=== PATIENT | male | born 1965 | race Caucasian/White ===

== ENCOUNTER 2017-10-06 11:46 | Inpatient (IN) | payer MEDICAID, OTHER, SELFPAY ==
[2017-10-06 11:52] VITALS: BP 134/87; PULSE 106; RESP 16; TEMP 37.6; O2SAT 95
--- NOTE | 2017-10-06 12:10 | DI.REPORT_ITS ---
SYMPTOMS/DIAGNOSIS: SWELLING AND PAIN, INFECTION IN ARM LEFT ELBOW: Only two views were obtained due to patient's pain. No definite fracture or dislocation is appreciated. There may be a small joint effusion. There is soft tissue swelling about the elbow. No radiopaque foreign bodies are seen in the soft tissues. IMPRESSION: Limited examination of the left elbow. No definite acute fracture or dislocation. Findings suggestive of an effusion. Occult fracture cannot be excluded. Followup as clinically appropriate. This may include a complete left elbow series.
[2017-10-06 12:29] LABS: Abs Immature Grans 0.03 k/cumm (0.0-0.09); Absolute Basophil Count 0.01 k/cumm (0.0-0.2); Absolute Eosinophil Count 0.04 k/cumm (0.0-0.7); Absolute Lymphocyte Count 1.23 k/cumm (1.2-3.4); Absolute Monocyte Count 0.96 k/cumm (0.11-0.7); Absolute Neutrophil Count 8.68 k/cumm (1.2-6.7); Basophils % 0.1; Eosinophils % 0.4; HCT 40.3 % (40.0-50.0); HGB 14.4 g/dL (13.5-17.5); Immature Grans % 0.3; Lymphocytes % 11.2; Mean Corp. HGB Concentration 35.7 g/dL (32.0-36.0); Mean Corpuscular Hemoglobin 31.9 pg (27.0-33.0); Mean Corpuscular Volume 89.2 fL (80-95); Mean Platelet Volume 10.6 fL (8.0-11.0); Monocytes % 8.8; Neutrophils % 79.2; Platelet Count 184 x1000/uL (130-400); RBC 4.52 m/cumm (4.50-6.00); RBC Distribution Width 12.1 % (11.8-14.1); White Blood Cell Count 10.96 k/cumm (4.4-10.8)
[2017-10-06 12:41] LABS: C-Reactive Protein 21.11 mg/dL (0.0-0.3)
[2017-10-06 12:45] LABS: ALT 38 U/L (12-78); AST 36 U/L (15-37); Albumin 3.7 g/dL (3.4-5.0); Alkaline Phosphatase 78 U/L (46-116); Anion Gap 9.5 mmol/L (3-11); BUN 20 mg/dL (7-18); Bilirubin, Total 1.6 mg/dL (0.2-1.0); CO2 25.5 mmol/L (21.0-32.0); Calcium 8.9 mg/dL (8.5-10.1); Chloride 99 mmol/L (98-107); Glucose 102 mg/dL (70-100); Potassium 3.4 mmol/L (3.5-5.1); Sodium 134 mmol/L (136-145); Total Protein 7.9 g/dL (6.4-8.2)
--- NOTE | 2017-10-06 12:45 | ED.GENADUL_ITS ---
Disposition Clinical Impression: Cellulitis Disposition: [facility] INPATIENT Condition: Poor Medical Decision Making - Lab Data Laboratory Tests 10/06/17 10/06/17 12:19 12:19 WBC 10.96 H RBC 4.52 Hgb 14.4 Hct 40.3 MCV 89.2 MCH 31.9 MCHC 35.7 RDW 12.1 Plt Count 184 MPV 10.6 Immature Gran % 0.3 Neutrophils % 79.2 Lymphocytes % 11.2 Monocytes % 8.8 Eosinophils % 0.4 Basophils % 0.1 Absolute Neutrophils 8.68 H Absolute Lymphocytes 1.23 Absolute Monocytes 0.96 H Absolute Eosinophils 0.04 Absolute Basophils 0.01 Lactate 1.0 Results reviewed for labs ordered during visit: Yes - Radiology Data Radiology results: report reviewed, image reviewed - Medical Decision Making Patient presenting to the emergency department via [facility] facility medical staff there is concern for treatment failure for left elbow cellulitis. Patient has significant cellulitis, is diaphoretic, and tachycardic on presentation. Patient does have appropriate passive range of motion of the joint but does state significant discomfort more superior to the elbow and not directly over the joint. Septic arthritis is considered but I feel that this is significantly lower than cellulitis given physical exam and history description. The patient did report initially more increased sensitivity to light touch of the extremity and not so much and arthritic initial complaint. There is concern for significant treatment failure also given patient's history of cellulitis that required inpatient stay and IV antibiotics I do feel that this is highly likely given patient's condition. Patient is not hypotensive at this time so do not see signs of hypotensive shock but of significant infection. Plan to draw labs including CBC, CMP, ESR and CRP along with radiological imaging of the elbow for any bone involvement. Blood cultures are also ordered pending starting of antibiotics. After review of labs that show a mild leukocytosis significant elevation of CRP and radiological imaging preliminarily showing no bone involvement no gas formation, no significant effusion I do feel that patient needs to be admitted for IV antibiotics for treatment failure for cellulitis. Called and spoke with Paloma Barger nurse practitioner with hospitalist service whom accepted patient for inpatient admission. Bridge orders were placed. Patient was in agreement to this plan of care [facility] also made aware of need for admission. History of Present Illness - General Chief complaint: Cellulitis Stated complaint: INFECTION IN ARM Time Seen by Provider: 10/06/17 12:00 Source: patient, RN notes reviewed Mode of arrival: ambulatory Limitations: no limitations - History of Present Illness Initial comments: Patient reports 4 days ago he began having some pain and discomfort to left elbow. He states that initially he just noted an ache but extreme sensitivity to palpation of the skin. Then within approximately 6 hours there was significant redness, and heat to the elbow. Patient is at the correctional facility and sought medical treatment there. Their med staff contacted the emergency department stated that patient had been on Keflex and IM Rocephin for the last 3 days and this morning showed worsening of symptoms. Patient has fever and chills, and overall malaise. Patient denies any other areas of rash or lesions. Patient does state history of cellulitis with need to be admitted for IV vancomycin. Onset/Timin -: days(s) Location: left, upper extremity Severity scale (1-10): 10 Quality: aching Consistency: constant Improves with: none Worsens with: none Associated Symptoms: fever/chills Treatments Prior to Arrival: NSAID, other (Keflex and Rocephin) - Related Data Acetaminophen [Pain Relief] 2 BID PRN 10/06/17 Cephalexin [Keflex] 500 mg PO TID 10/06/17 Ibuprofen 600 mg PO BID PRN 10/06/17 Pantoprazole [Protonix] 40 mg PO DAILY 10/06/17 Simvastatin 20 mg PO HS 10/06/17 Allergies Allergy/AdvReac Type Severity Reaction Status Date / Time Sulfa (Sulfonamide Allergy Intermediate Skin Rash Unverified 10/06/17 11:56 Antibiotics) Review of Systems Constitutional: chills, diaphoresis, fever, malaise ENT: denies: throat pain, congestion Respiratory: denies: cough, shortness of breath Cardiovascular: denies: chest pain Gastrointestinal: denies: abdominal pain, nausea, vomiting, diarrhea Musculoskeletal: as per HPI, joint swelling Skin: as per HPI, change in color Past Medical History - Past Medical History Cellulitis Surgical history: other (Knee and shoulder arthroscopy) - Social History Smoking status: former smoker Alcohol use: none Drug use: none Living Situation: other (Incarcerated at correctional facility) General Exam - General Limitations: no limitations General appearance: alert, in no apparent distress - Head Head exam: Present: atraumatic - Eye Eye exam: Present: normal apperance - Respiratory Respiratory exam: Present: normal lung sounds bilaterally. Absent: respiratory distress - Cardiovascular Cardiovascular Exam: Present: normal rhythm, tachycardia, normal heart sounds. Absent: irregular rhythm, systolic murmur, rubs, clicks - Expanded Upper Extremity Exam Left Upper Arm exam: Present: erythema Elbow exam: Present: tenderness (To posterior elbow), swelling (With no area of fluctuance noted on exam), erythema (With worsened area directly around the elbow. Skin marker used to identify spread of erythema.), other (No area of injury or skin breakdown is noted). Absent: full ROM (Pain with active range of motion but passive range of motion is unobtainable. During this patient states pain is superior to the elbow itself and not directly over the elbow.), abrasion, laceration, effusion Forearm Wrist exam: Present: erythema Hand Wrist exam: Present: normal inspection Vascular: Present: normal capillary refill - Neurological Exam Neurological exam: Present: alert, oriented X3. Absent: altered - Skin Skin exam: Present: warm, dry Course Vital Signs - 24 hr 10/06/17 11:52 Temperature 37.6 C H Pulse 106 H Respiratory 16 Rate Blood Pressure 134/87 Pulse Oximetry 95
[2017-10-06 13:05] LABS: ESR 75 MM/HR (1-20)
[2017-10-06] MEDS: Normal Saline 1,000 ML 1000 ML IV (13:05)
--- NOTE | 2017-10-06 13:05 | PDOC.HP ---
Date of Service: 10/06/17 Time of Service: 13:00 Assessment/Plan - Assessment/Plan (1) Cellulitis Assessment: Will admit observation to the medical surgical unit continue vancomycin and Zosyn. Vancomycin to be pharmacy dosed Elevate extremity above the level of the heart is much as possible throughout the day, area has been marked with skin marker NSAIDs for pain management Probiotic with meals (2) GERD (gastroesophageal reflux disease) Plan: Continue pantoprazole daily (3) DVT prophylaxis Assessment: Lovenox daily (4) Discharge planning issues Assessment: Will discharge back to the correctional facility once medically stable no anticipated outpatient services (5) Dyslipidemia Plan: Continue statin History of Present Illness - History of Present Illness Chief Complaint: elbow pain and swelling History of Present Illness: 4 day history of elbow redness swelling fever and pain, was being treated outpatient with keflex and ceftriaxone and has had treatment failure with worsening symptoms. has had a history of facial cellulitis requiring inpatient admission for IV antibiotics. work up in the ED show cellulitis with no evidence of sepsis or septic joint. he will be started on vancomycin and admitted under hospitalist services for inpatient treatment. he denies any recent trauma or injury to the area. - Past Medical History Cardiac: Hyperlipidemia Gastrointestinal: GERD Dermatology: Cellulitis - Past Surgical History Past Surgical History: Other (Shoulder and knee surgery) - Past Social History Smoke: No Alcohol: None Drugs: None Lives: Other (Incarcerated) Review of Systems - Review of Systems Constitutional: Fever, Chills, Sweats, Malaise Respiratory: denies: Cough, Shortness of Breath Cardiovascular: denies: Chest Pain Gastrointestinal: denies: Nausea, Vomiting, Abdominal Pain, Diarrhea, Constipation Genitourinary: denies: Dysuria, Frequency Musculoskeletal: Arm Pain (Elbow) Skin: Rash Neurological: denies: Numbness - Medications/Allergies Allergies/Adverse Reactions: Allergies Allergy/AdvReac Type Severity Reaction Status Date / Time Sulfa (Sulfonamide Allergy Intermediate Skin Rash Unverified 10/06/17 11:56 Antibiotics) Medications: Current Medications Vancomycin HCl 1,500 mg/ (Sodium Chloride) 250 mls @ 166.667 mls/hr IVPB NOW ONE Stop: 10/06/17 14:44 IV Miscellaneous Supplies () 1 each IV DIRECTED CASIMIRO Sodium Chloride (Saline Flush 10 Ml Syringe) 0 ml IVP PRN PRN Objective - Exam Vitals and I&O: Vital Signs Temp 37.6 C H 10/06/17 11:52 Pulse 106 H 10/06/17 11:52 Resp 16 10/06/17 11:52 BP 134/87 10/06/17 11:52 Pulse Ox 95 10/06/17 11:52 Intake & Output 10/05/17 10/06/17 10/06/17 23:59 11:59 23:59 Weight 101.151 kg General: Alert, Oriented x3 HEENT: Atraumatic, PERRLA Neck: Supple Lungs: Clear to auscultation Cardiovascular: Regular rate Abdomen: Normal bowel sounds Extremities: Normal pulses, Tenderness/swelling. denies: Cyanosis Skin: Rashes Neurological: Normal gait, Normal speech Psych/Mental Status: Mental status NL, Mood NL Results - Laboratory Data Result Diagrams: 10/06/17 12:19 10/06/17 12:19 Laboratory Results: Laboratory Tests 10/06/17 10/06/17 10/06/17 12:19 12:19 12:19 WBC 10.96 H RBC 4.52 Hgb 14.4 Hct 40.3 MCV 89.2 MCH 31.9 MCHC 35.7 RDW 12.1 Plt Count 184 MPV 10.6 Immature Gran % 0.3 Neutrophils % 79.2 Lymphocytes % 11.2 Monocytes % 8.8 Eosinophils % 0.4 Basophils % 0.1 Absolute Neutrophils 8.68 H Absolute Lymphocytes 1.23 Absolute Monocytes 0.96 H Absolute Eosinophils 0.04 Absolute Basophils 0.01 Sodium 134 L Potassium 3.4 L Chloride 99 Carbon Dioxide 25.5 Anion Gap 9.5 BUN 20 H Creatinine 1.00 Estimated GFR/1.73 m2 >= 60.00 Glucose 102 H Lactate 1.0 Calcium 8.9 Total Bilirubin 1.6 H AST 36 ALT 38 Alkaline Phosphatase 78 C-Reactive Protein Total Protein 7.9 Albumin 3.7 10/06/17 12:19 WBC RBC Hgb Hct MCV MCH MCHC RDW Plt Count MPV Immature Gran % Neutrophils % Lymphocytes % Monocytes % Eosinophils % Basophils % Absolute Neutrophils Absolute Lymphocytes Absolute Monocytes Absolute Eosinophils Absolute Basophils Sodium Potassium Chloride Carbon Dioxide Anion Gap BUN Creatinine Estimated GFR/1.73 m2 Glucose Lactate Calcium Total Bilirubin AST ALT Alkaline Phosphatase C-Reactive Protein 21.11 H Total Protein Albumin
[2017-10-06] MEDS: Ketorolac 15 MG/ML VIAL IVP (13:08)
[2017-10-06] MEDS: VANCOMYCIN 1,500 MG in Normal Saline 250 ML 166.667 MG IVPB (13:17)
[2017-10-06 13:29] VITALS: BP 135/76; PULSE 106; RESP 15; TEMP 37.4; O2SAT 99
--- NOTE | 2017-10-06 13:33 | DI.VRAD_ITS ---
EXAM: XR Left Elbow Complete, 3 or More Views CLINICAL HISTORY: 52 years old, male; Pain and signs and symptoms; Swelling; Elbow; Left; Patient HX: Swelling and pain TECHNIQUE: Frontal, lateral and oblique views of the left elbow. COMPARISON: No relevant prior studies available. FINDINGS: Bones/joints: Only 2 views were provided. True lateral view was limited due to pain. There appears to be soft tissue swelling. A small anterior effusion cannot be entirely excluded. No gross displaced fracture. There is no dislocation. IMPRESSION: Limited due to patient's inability to tolerate positioning. There is suggestion of an anterior fusion. Radiographically occult fractures not excluded. Would advise a dedicated lateral and oblique view after pain management. There is no dislocation. Dictated and Authenticated by: Irene Cullen MD. Ordering:ALIDA GILL MD
[2017-10-06 13:45] VITALS: BP 121/84; PULSE 88; RESP 18; TEMP 36.9; O2SAT 95
[2017-10-06] MEDS: Enoxaparin 40 MG/0.4 ML SYR SC (14:16)
[2017-10-06] MEDS: Normal Saline 1,000 ML 125 ML IV ×2 (15:03→23:44)
[2017-10-06] MEDS: Acetaminophen 325 MG TAB 650 MG PO (15:24)
[2017-10-06] MEDS: Potassium Chloride 20 MEQ TABCR 40 MEQ PO (15:25)
[2017-10-06 15:46] LABS: Magnesium 2.1 mg/dL (1.8-2.4)
[2017-10-06 16:27] VITALS: BP 114/74; PULSE 84; RESP 18; TEMP 37.3; O2SAT 95
[2017-10-06] MEDS: Lactobacillus Acidophilus CAP 1 CAP PO (16:53)
[2017-10-06 21:14] VITALS: BP 120/78; PULSE 80; RESP 17; TEMP 37.1; O2SAT 95
[2017-10-06] MEDS: Melatonin 3 MG TAB 9 MG PO (22:18)
[2017-10-06 23:10] VITALS: BP 109/63; PULSE 70; RESP 16; TEMP 37.2; O2SAT 95
[2017-10-06] MEDS: VANCOMYCIN 1,500 MG in Normal Saline 500 ML 333.333 MG IVPB (23:44)
[2017-10-07 07:02] LABS: Abs Immature Grans 0.02 k/cumm (0.0-0.09); Absolute Basophil Count 0.01 k/cumm (0.0-0.2); Absolute Eosinophil Count 0.05 k/cumm (0.0-0.7); Absolute Monocyte Count 0.77 k/cumm (0.11-0.7); Absolute Neutrophil Count 5.57 k/cumm (1.2-6.7); Basophils % 0.1; Eosinophils % 0.7; HCT 33.9 % (40.0-50.0); HGB 11.8 g/dL (13.5-17.5); Immature Grans % 0.3; Lymphocytes % 14.6; Mean Corp. HGB Concentration 34.8 g/dL (32.0-36.0); Mean Corpuscular Hemoglobin 31.7 pg (27.0-33.0); Mean Corpuscular Volume 91.1 fL (80-95); Mean Platelet Volume 10.6 fL (8.0-11.0); Monocytes % 10.2; Neutrophils % 74.1; Platelet Count 157 x1000/uL (130-400); RBC 3.72 m/cumm (4.50-6.00); RBC Distribution Width 11.9 % (11.8-14.1); White Blood Cell Count 7.52 k/cumm (4.4-10.8)
[2017-10-07 07:14] LABS: ALT 55 U/L (12-78); AST 41 U/L (15-37); Albumin 2.5 g/dL (3.4-5.0); Alkaline Phosphatase 63 U/L (46-116); Anion Gap 9.7 mmol/L (3-11); BUN 15 mg/dL (7-18); Bilirubin, Total 0.8 mg/dL (0.2-1.0); CO2 24.3 mmol/L (21.0-32.0); CREATININE 0.85 mg/dL (0.70-1.30); Calcium 7.9 mg/dL (8.5-10.1); Chloride 108 mmol/L (98-107); Glucose 97 mg/dL (70-100); Potassium 3.6 mmol/L (3.5-5.1); Sodium 142 mmol/L (136-145)
[2017-10-07 07:30] VITALS: O2SAT 93
[2017-10-07] MEDS: Pantoprazole 40 MG TABCR PO (07:46)
[2017-10-07] MEDS: Lactobacillus Acidophilus CAP 1 CAP PO ×3 (07:46→16:12)
[2017-10-07] MEDS: Ibuprofen 600 MG TAB PO ×2 (07:49→16:13)
[2017-10-07 07:50] VITALS: BP 107/64; PULSE 79; RESP 18; TEMP 36.8; O2SAT 98
[2017-10-07] MEDS: Normal Saline 1,000 ML 125 ML IV ×2 (09:26→20:01)
--- NOTE | 2017-10-07 10:33 | PDOC.CMIN ---
Date of Service: 10/07/17 Time of Service: 10:33 Care Management Initial Assess REASON FOR HOSPITALIZATION:: Left elbow cellulitis. PAST MEDICAL HISTORY/PAST SURGICAL HISTORY:: Cellulitis, hyperlipidemia, GERD, shoulder and knee arthroscopy. PREVIOUS FUNCTIONAL STATUS/SOCIAL/FAMILY SUPPORTS:: Yuan is presently incarcerated at [facility] in [facility]. Pt reports that he has been at the facility for approximately two weeks and will be released on 10/11/17. Yuan will be returning to his home on [address] at that time. Pt is single and has two adult children. CURRENT FUNCTIONAL STATUS:: Yuan is sitting up in bed and has a corrections guard in the room with him. He has a shackle to his right ankle but has just returned from the bathroom so is not restrained when CM meets with him. Pt reports that his left arm began hurting 7 days ago and that he has a history of cellulitis. Yuan reports that his pain is under control now. Pt is engaged and talkative. ADVANCE DIRECTIVES:: None on file. Has patient been provided with information about the portal?: No Did the patient sign up for the portal?: No CODE STATUS:: Full Code INSURANCE COVERAGE / FINANCIAL ISSUES:: [facility]. CURRENT HOME/COMMUNITY SERVICES/EQUIPMENT:: No services at this time. PRIMARY CARE PHYSICIAN:: Jinny Boggs. POTENTIAL DISCHARGE NEEDS:: Follow up with medical staff/PCP at [facility]. PATIENT/FAMILY EDUCATION NEEDS:: Discharge education, limitations and follow up plan of care. Ask Me Three discussion and self management. ANTICIPATED BARRIERS TO DISCHARGE:: No anticipated barriers to discharge. TRANSPORTATION:: Pt will be transported with guard to [facility] by correctional van. PLAN:: Yuan will discharge when medically ready per MD. Pt continues to receive IV ABX and fluids. CM to continue to provide support, discharge planning and disposition.
[2017-10-07] MEDS: VANCOMYCIN 1,500 MG in Normal Saline 500 ML 333.333 MG IVPB ×2 (10:36→20:12)
--- NOTE | 2017-10-07 10:59 | INITIAL_ITS ---
Date of Service: 10/07/17 Time of Service: 10:33 Care Management Initial Assess REASON FOR HOSPITALIZATION:: Left elbow cellulitis. PAST MEDICAL HISTORY/PAST SURGICAL HISTORY:: Cellulitis, hyperlipidemia, GERD, shoulder and knee arthroscopy. PREVIOUS FUNCTIONAL STATUS/SOCIAL/FAMILY SUPPORTS:: Yuan is presently incarcerated at [facility] in [facility]. Pt reports that he has been at the facility for approximately two weeks and will be released on 10/11/17. Yuan will be returning to his home on [address] at that time. Pt is single and has two adult children. CURRENT FUNCTIONAL STATUS:: Yuan is sitting up in bed and has a corrections guard in the room with him. He has a shackle to his right ankle but has just returned from the bathroom so is not restrained when CM meets with him. Pt reports that his left arm began hurting 7 days ago and that he has a history of cellulitis. Yuan reports that his pain is under control now. Pt is engaged and talkative. ADVANCE DIRECTIVES:: None on file. Has patient been provided with information about the portal?: No Did the patient sign up for the portal?: No CODE STATUS:: Full Code INSURANCE COVERAGE / FINANCIAL ISSUES:: [facility]. CURRENT HOME/COMMUNITY SERVICES/EQUIPMENT:: No services at this time. PRIMARY CARE PHYSICIAN:: Jinny Boggs. POTENTIAL DISCHARGE NEEDS:: Follow up with medical staff/PCP at [facility]. PATIENT/FAMILY EDUCATION NEEDS:: Discharge education, limitations and follow up plan of care. Ask Me Three discussion and self management. ANTICIPATED BARRIERS TO DISCHARGE:: No anticipated barriers to discharge. TRANSPORTATION:: Pt will be transported with guard to [facility] by correctional van. PLAN:: Yuan will discharge when medically ready per MD. Pt continues to receive IV ABX and fluids. CM to continue to provide support, discharge planning and disposition.
--- NOTE | 2017-10-07 11:31 | PHARADMIT ---
Addendum entered by Sandy Cabezas 10/13/17 13:40: Pharmacy Note Subjective Objective VS-okay BUN-21 other labs are within normal limits Assessment blood cultures no growth at 120 hours vanco changed to linezolid yesterday, nothing to really guide treatment Plan Md mentioned possibly aspirating if fever comes back on PO abx, may go back to correctional facility tomorrow Original Note: Addendum entered by Denisa Bellamy 10/10/17 16:28: Pharmacy Note Subjective Objective Temp x 3 yesterday, afebrile today, BP ok, Micro no growth x 96hrs ESR 78 Assessment Vanco restarted at same dose due to spiked fever: 1500mg IV q8h (did receive Cefdinir x 1 dose) Doxycycline cancelled Plan Vanco trough @ 1700 tonight, may need to go on oral Zyvox per Orthopedic report prior to going back to correctional center Original Note: Addendum entered by Dawson Agarwal III 10/09/17 15:43: Pharmacy Note Subjective Elbow splinted by . Vancomycin & Zosyn dc'd Objective VS-OK Temp-37.1C No Labs Micro No Growth /72 hrs Assessment Omnicef & Doxycycline PO started Plan Probable discharge tomorrow Original Note: Addendum entered by Sandy Cabezas 10/08/17 14:56: Pharmacy Note Subjective ortho may brace the elbow Objective VS-okay h/h-11.7/34.0 WBC-5.74 Assessment vanco trough was low last night so dose changed from 1500 mg Q10H to 1500 mg Q8H to target a trough of 11.5 blood culture-no growth at 24 hours Plan watch for possible change to PO abx tomorrow vanco trough scheduled for 1100 tomorrow, cancel if abx changed to PO prior to that, otherwise adjust vanco dose as necessary based on trough Original Note: Admission Pharmacy Clinical Review Code Status Full Code Current Weight 101.151 kg Renally Cleared and Narrow Therapeutic Index Meds crcl - 120 Vancomycin Lovenox Zosyn QTc Value / Action Taken NA BP Control, Fever 107/64, nonfebrile Electrolytes reviewed calcium - 7.9 L albumin - 2.5 L DVT Prophylaxis Lovenox Opiate Usage / Scheduled Bowel Regimen Ordered N/A Plt/SCr for Heparin / Enoxaparin plt - 157 scr - 0.85 INR for Warfarin N/A H/H stable, WBC/Bands hgb - 11.8 L hct - 33.9 L rbc - 3.72 L Antibiotic appropriateness pending Cultures and Sensitivities pending Surgical ABX d/c within 24 hr NA DM control / Insulin Dosing NA Heart Failure (Check EF%) (JEREMI's, B-Block, Diuretics) NA IV to PO Switch NA Home Meds Reviewed Yes Home Meds Not Ordered NA Comments failed therapy with two prior antibiotics outpatient
--- NOTE | 2017-10-07 12:07 | PDOC.PROG_ITS ---
Date of Service: 10/07/17 Time of Service: 11:05 Assessment/Plan - Assessment/Plan (1) Cellulitis Plan: Improving. Continue IV Vanco and Zosyn. Will check bloodwork again in the morning. Tylenol and ibuprofen for pain control. Yuan has been having increased discomfort at night, so will order IV toradol and benadryl with discomfort and promote sleep. Discussed case with Dr. Covarrubias who is in agreement. Time spent with patient 25 mins History of Present Illness - History of Present Illness History of Present Illness: 52 yo generally healthy male who was admitted for treatment of L elbow cellulitis which had failed outpatient treatment with keflex and ceftriaxone. He reports continued L elbow pain that is currently being managed with tylenol and ibuprofen which for the most part is working, however at night his discomfort can become troublesome. Otherwise he has noticed improved ROM, swelling and decreased redness. Other than his elbow discomfort he has no other complaints to offer. A patrol community service officer is at the bedside and the patient is shackled to the bed but reports that he had been OOB to the chair for a few hours. Review of Systems - Review of Systems Constitutional: Other (10 point ROS obtained with pertinent positives noted in HPI, otherwise negative.) - Medications/Allergies Allergies/Adverse Reactions: Allergies Allergy/AdvReac Type Severity Reaction Status Date / Time Sulfa (Sulfonamide Allergy Intermediate Skin Rash Unverified 10/06/17 11:56 Antibiotics) Medications: Current Medications Acetaminophen (Tylenol) 650 mg PO Q6H PRN PRN Last Admin: 10/06/17 15:24 Dose: 650 mg Acidophilus/Pectin (Acidophilus) 1 cap PO QMEALS [facility] Last Admin: 10/07/17 11:31 Dose: 1 cap Dimethicone/Zinc Oxide (Magda Protect Cream) 0 gm TP PRN PRN Enoxaparin Sodium (Lovenox) 40 mg SC Q24H [facility] Last Admin: 10/06/17 14:16 Dose: 40 mg Vancomycin HCl 1,500 mg/ (Sodium Chloride) 500 mls @ 333.333 mls/hr IVPB Q10H [facility] Last Admin: 10/07/17 10:36 Dose: 333.333 mls/hr Piperacillin/Tazobactam/Dextrose (Zosyn) 3.375 gm in 50 mls @ 100 mls/hr IVPB Q6H [facility] Last Admin: 10/07/17 09:23 Dose: 100 mls/hr Sodium Chloride (Saline 1000ml Bag) 1,000 mls @ 125 mls/hr IV INFUSION [facility] Last Admin: 10/07/17 09:26 Dose: 125 mls/hr IV Miscellaneous Supplies () 1 each IV DIRECTED [facility] Ibuprofen (Motrin) 600 mg PO Q6H PRN PRN Last Admin: 10/07/17 07:49 Dose: 600 mg Magnesium Hydroxide (Milk Of Magnesia) 30 ml PO DAILY PRN PRN Melatonin () 9 mg PO HS [facility] Last Admin: 10/06/17 22:18 Dose: 9 mg Ondansetron HCl (Zofran Injection) 4 mg IVP Q4H PRN PRN Pantoprazole Sodium (Protonix) 40 mg PO DAILY [facility] Last Admin: 10/07/17 07:46 Dose: 40 mg Polyethylene Glycol (Miralax) 17 gm PO DAILY PRN PRN PRN Reason: Constipation Simvastatin (Zocor) 20 mg PO HS [facility] Sodium Chloride (Saline Flush 10 Ml Syringe) 0 ml IVP PRN PRN Objective - Exam Vitals and I&O: Vital Signs Temp 36.8 C 10/07/17 07:50 Pulse 79 10/07/17 07:50 Resp 18 10/07/17 07:50 BP 107/64 10/07/17 07:50 Pulse Ox 98 10/07/17 07:50 Intake & Output 10/06/17 10/07/17 10/07/17 23:59 11:59 23:59 Intake Total 2625 1312 Balance 2625 1312 Weight 101.151 kg Intake: IV 1755 702 Oral 870 610 Other: Urine Color Yellow Comment pt gets up AD JITENDRA to void. independantly Voiding Methods Toilet Toilet General: Alert, Oriented x3, Cooperative, No acute distress HEENT: Atraumatic, PERRLA, EOMI, Mucous membr. moist/pink Neck: Supple Lungs: Clear to auscultation, Normal air movement Cardiovascular: Regular rate, Normal S1, Normal S2 Abdomen: Normal bowel sounds, Soft. denies: Tenderness, Hepatospenomegaly, Masses, Other Extremities: Normal pulses, Tenderness/swelling (L elbow tenderness, swelling, decreased ROM (although improving). Redness is receding from the outline) Skin: denies: Rashes, Breakdown, Significant lesion Neurological: Normal gait, Normal speech, Strength at 5/5 X4 ext, Normal tone, Sensation intact, Cranial nerves 3-12 NL Psych/Mental Status: Mental status NL, Mood NL - Results Results: Laboratory Results WBC 7.52 k/cumm (4.4-10.8) D 10/07/17 06:33 RBC 3.72 m/cumm (4.50-6.00) L 10/07/17 06:33 Hgb 11.8 g/dL (13.5-17.5) L D 10/07/17 06:33 Hct 33.9 % (40.0-50.0) L 10/07/17 06:33 MCV 91.1 fL (80-95) 10/07/17 06:33 MCH 31.7 pg (27.0-33.0) 10/07/17 06:33 MCHC 34.8 g/dL (32.0-36.0) 10/07/17 06:33 RDW 11.9 % (11.8-14.1) 10/07/17 06:33 Plt Count 157 x1000/uL (130-400) 10/07/17 06:33 MPV 10.6 fL (8.0-11.0) 10/07/17 06:33 Immature Gran % 0.3 10/07/17 06:33 Neutrophils % 74.1 10/07/17 06:33 Lymphocytes % 14.6 10/07/17 06:33 Monocytes % 10.2 10/07/17 06:33 Eosinophils % 0.7 10/07/17 06:33 Basophils % 0.1 10/07/17 06:33 Absolute Neutrophils 5.57 k/cumm (1.2-6.7) 10/07/17 06:33 Absolute Lymphocytes 1.10 k/cumm (1.2-3.4) L 10/07/17 06:33 Absolute Monocytes 0.77 k/cumm (0.11-0.7) H 10/07/17 06:33 Absolute Eosinophils 0.05 k/cumm (0.0-0.7) 10/07/17 06:33 Absolute Basophils 0.01 k/cumm (0.0-0.2) 10/07/17 06:33 ESR 75 MM/HR (1-20) H 10/06/17 12:19 Sodium 142 mmol/L (136-145) 10/07/17 06:33 Potassium 3.6 mmol/L (3.5-5.1) 10/07/17 06:33 Chloride 108 mmol/L (98-107) H 10/07/17 06:33 Carbon Dioxide 24.3 mmol/L (21.0-32.0) 10/07/17 06:33 Anion Gap 9.7 mmol/L (3-11) 10/07/17 06:33 BUN 15 mg/dL (7-18) 10/07/17 06:33 Creatinine 0.85 mg/dL (0.70-1.30) 10/07/17 06:33 Estimated GFR/1.73 m2 >= 60.00 (mL/min/1.73m2) 10/07/17 06:33 Glucose 97 mg/dL (70-100) 10/07/17 06:33 Lactate 1.0 mmol/L (0.6-1.4) 10/06/17 12:19 Calcium 7.9 mg/dL (8.5-10.1) L 10/07/17 06:33 Magnesium 2.1 mg/dL (1.8-2.4) 10/06/17 12:19 Total Bilirubin 0.8 mg/dL (0.2-1.0) 10/07/17 06:33 AST 41 U/L (15-37) H 10/07/17 06:33 ALT 55 U/L (12-78) 10/07/17 06:33 Alkaline Phosphatase 63 U/L (46-116) 10/07/17 06:33 C-Reactive Protein 21.11 mg/dL (0.0-0.3) H 10/06/17 12:19 Total Protein 6.0 g/dL (6.4-8.2) L 10/07/17 06:33 Albumin 2.5 g/dL (3.4-5.0) L 10/07/17 06:33
[2017-10-07] MEDS: Enoxaparin 40 MG/0.4 ML SYR SC (13:44)
[2017-10-07] MEDS: Acetaminophen 325 MG TAB 650 MG PO ×2 (13:44→20:00)
[2017-10-07 16:01] VITALS: BP 117/69; PULSE 72; RESP 22; TEMP 37.3; O2SAT 97
[2017-10-07 19:31] LABS: Vancomycin, Trough 8.7 ug/mL (10.0-20.0)
[2017-10-07] MEDS: Ketorolac 30 MG/ML VIAL IVP (21:41)
[2017-10-07] MEDS: diphenhydrAMINE 25 MG CAP PO (21:41)
[2017-10-07] MEDS: Simvastatin 20 MG TAB PO (21:42)
[2017-10-08 00:25] VITALS: BP 136/81; PULSE 60; RESP 16; TEMP 36.2; O2SAT 95
[2017-10-08] MEDS: Ibuprofen 600 MG TAB PO ×2 (00:40→08:12)
[2017-10-08] MEDS: VANCOMYCIN 1,500 MG in Normal Saline 500 ML 333.333 MG IVPB ×3 (04:51→19:53)
[2017-10-08 06:55] LABS: Abs Immature Grans 0.01 k/cumm (0.0-0.09); Absolute Basophil Count 0.02 k/cumm (0.0-0.2); Absolute Eosinophil Count 0.23 k/cumm (0.0-0.7); Absolute Lymphocyte Count 1.23 k/cumm (1.2-3.4); Absolute Monocyte Count 0.68 k/cumm (0.11-0.7); Absolute Neutrophil Count 3.57 k/cumm (1.2-6.7); Basophils % 0.3; HGB 11.7 g/dL (13.5-17.5); Immature Grans % 0.2; Lymphocytes % 21.4; Mean Corp. HGB Concentration 34.4 g/dL (32.0-36.0); Mean Corpuscular Hemoglobin 31.5 pg (27.0-33.0); Mean Corpuscular Volume 91.6 fL (80-95); Mean Platelet Volume 10.4 fL (8.0-11.0); Monocytes % 11.8; Neutrophils % 62.3; Platelet Count 162 x1000/uL (130-400); RBC 3.71 m/cumm (4.50-6.00); White Blood Cell Count 5.74 k/cumm (4.4-10.8)
[2017-10-08] MEDS: Normal Saline Flush 10 ML SYR IVP ×4 (07:03→20:05)
[2017-10-08 07:04] LABS: Anion Gap 3.8 mmol/L (3-11); BUN 11 mg/dL (7-18); CO2 27.2 mmol/L (21.0-32.0); Calcium 7.9 mg/dL (8.5-10.1); Chloride 106 mmol/L (98-107); Glucose 93 mg/dL (70-100); Potassium 3.7 mmol/L (3.5-5.1); Sodium 137 mmol/L (136-145)
[2017-10-08 07:10] VITALS: O2SAT 96
[2017-10-08 07:35] VITALS: BP 131/91; PULSE 71; RESP 24; TEMP 36.8; O2SAT 97
[2017-10-08] MEDS: Lactobacillus Acidophilus CAP 1 CAP PO ×3 (07:50→16:29)
[2017-10-08] MEDS: Pantoprazole 40 MG TABCR PO (07:50)
[2017-10-08] MEDS: Normal Saline 1,000 ML 125 ML IV (09:44)
--- NOTE | 2017-10-08 10:32 | PDOC.PROG ---
Date of Service: 10/08/17 Time of Service: 10:33 Assessment/Plan - Assessment/Plan (1) Cellulitis Assessment: WBC now normal, aftbrile, will change to po ABX after ortho eval. (2) Olecranon bursitis of left elbow Assessment: probably reactive, would benefit from splint/protection. Will consult ortho History of Present Illness - History of Present Illness Chief Complaint: none History of Present Illness: Elbow feels better today, still very painful to move elbow Review of Systems - Review of Systems Constitutional: denies: Fever, Chills Musculoskeletal: Arm Pain - Medications/Allergies Allergies/Adverse Reactions: Allergies Allergy/AdvReac Type Severity Reaction Status Date / Time Sulfa (Sulfonamide Allergy Intermediate Skin Rash Unverified 10/06/17 11:56 Antibiotics) Medications: Current Medications Acetaminophen (Tylenol) 650 mg PO Q6H PRN PRN Last Admin: 10/07/17 20:00 Dose: 650 mg Acidophilus/Pectin (Acidophilus) 1 cap PO QMEALS [facility] Last Admin: 10/08/17 07:50 Dose: 1 cap Dimethicone/Zinc Oxide (Magda Protect Cream) 0 gm TP PRN PRN Diphenhydramine HCl (Benadryl) 25 mg PO HS [facility] Last Admin: 10/07/17 21:41 Dose: 25 mg Enoxaparin Sodium (Lovenox) 40 mg SC Q24H [facility] Last Admin: 10/07/17 13:44 Dose: 40 mg Piperacillin/Tazobactam/Dextrose (Zosyn) 3.375 gm in 50 mls @ 100 mls/hr IVPB Q6H [facility] Last Admin: 10/08/17 09:45 Dose: 100 mls/hr Vancomycin HCl 1,500 mg/ (Sodium Chloride) 500 mls @ 333.333 mls/hr IVPB Q8H [facility] Last Admin: 10/08/17 04:51 Dose: 333.333 mls/hr IV Miscellaneous Supplies () 1 each IV DIRECTED [facility] Ibuprofen (Motrin) 600 mg PO Q6H PRN PRN Last Admin: 10/08/17 08:12 Dose: 600 mg Ketorolac Tromethamine (Toradol Injection) 30 mg IVP HS PRN Stop: 10/12/17 21:59 Last Admin: 10/07/17 21:41 Dose: 30 mg Magnesium Hydroxide (Milk Of Magnesia) 30 ml PO DAILY PRN PRN Ondansetron HCl (Zofran Injection) 4 mg IVP Q4H PRN PRN Pantoprazole Sodium (Protonix) 40 mg PO DAILY [facility] Last Admin: 10/08/17 07:50 Dose: 40 mg Polyethylene Glycol (Miralax) 17 gm PO DAILY PRN PRN PRN Reason: Constipation Simvastatin (Zocor) 20 mg PO [facility] Last Admin: 10/07/17 21:42 Dose: 20 mg Sodium Chloride (Saline Flush 10 Ml Syringe) 0 ml IVP PRN PRN Last Admin: 10/08/17 09:44 Dose: 10 ml Objective - Exam Vitals and I&O: Vital Signs Temp 36.8 C 10/08/17 07:35 Pulse 71 10/08/17 07:35 Resp 24 10/08/17 07:35 BP 131/91 10/08/17 07:35 Pulse Ox 97 10/08/17 07:35 Intake & Output 10/07/17 10/07/17 10/08/17 11:59 23:59 11:59 Intake Total 1812 3524 580 Balance 1812 3524 580 Intake: IV 1202 2194 Oral 610 1330 580 Other: Urine Color Yellow Urine Appearance Clear Comment independantly independantly void x 3 during noc shift with last being a large void just prior to this time. Stool Occult Blood Negative Stool Size Copious Stool Characteristics Soft Brown Voiding Methods Toilet Toilet Toilet General: Alert, Oriented x3, Cooperative, No acute distress Extremities: Tenderness/swelling (small amount fluid palpated in olecranon bursa) Skin: Significant lesion (erythema and tenderness and edema decreased) - Results Results: Laboratory Results WBC 5.74 k/cumm (4.4-10.8) 10/08/17 06:37 RBC 3.71 m/cumm (4.50-6.00) L 10/08/17 06:37 Hgb 11.7 g/dL (13.5-17.5) L 10/08/17 06:37 Hct 34.0 % (40.0-50.0) L 10/08/17 06:37 MCV 91.6 fL (80-95) 10/08/17 06:37 MCH 31.5 pg (27.0-33.0) 10/08/17 06:37 MCHC 34.4 g/dL (32.0-36.0) 10/08/17 06:37 RDW 12.0 % (11.8-14.1) 10/08/17 06:37 Plt Count 162 x1000/uL (130-400) 10/08/17 06:37 MPV 10.4 fL (8.0-11.0) 10/08/17 06:37 Immature Gran % 0.2 10/08/17 06:37 Neutrophils % 62.3 10/08/17 06:37 Lymphocytes % 21.4 10/08/17 06:37 Monocytes % 11.8 10/08/17 06:37 Eosinophils % 4.0 10/08/17 06:37 Basophils % 0.3 10/08/17 06:37 Absolute Neutrophils 3.57 k/cumm (1.2-6.7) 10/08/17 06:37 Absolute Lymphocytes 1.23 k/cumm (1.2-3.4) 10/08/17 06:37 Absolute Monocytes 0.68 k/cumm (0.11-0.7) 10/08/17 06:37 Absolute Eosinophils 0.23 k/cumm (0.0-0.7) 10/08/17 06:37 Absolute Basophils 0.02 k/cumm (0.0-0.2) 10/08/17 06:37 ESR 75 MM/HR (1-20) H 10/06/17 12:19 Sodium 137 mmol/L (136-145) 10/08/17 06:37 Potassium 3.7 mmol/L (3.5-5.1) 10/08/17 06:37 Chloride 106 mmol/L (98-107) 10/08/17 06:37 Carbon Dioxide 27.2 mmol/L (21.0-32.0) 10/08/17 06:37 Anion Gap 3.8 mmol/L (3-11) 10/08/17 06:37 BUN 11 mg/dL (7-18) 10/08/17 06:37 Creatinine 0.80 mg/dL (0.70-1.30) 10/08/17 06:37 Estimated GFR/1.73 m2 >= 60.00 (mL/min/1.73m2) 10/08/17 06:37 Glucose 93 mg/dL (70-100) 10/08/17 06:37 Lactate 1.0 mmol/L (0.6-1.4) 10/06/17 12:19 Calcium 7.9 mg/dL (8.5-10.1) L 10/08/17 06:37 Magnesium 2.1 mg/dL (1.8-2.4) 10/06/17 12:19 Total Bilirubin 0.8 mg/dL (0.2-1.0) 10/07/17 06:33 AST 41 U/L (15-37) H 10/07/17 06:33 ALT 55 U/L (12-78) 10/07/17 06:33 Alkaline Phosphatase 63 U/L (46-116) 10/07/17 06:33 C-Reactive Protein 21.11 mg/dL (0.0-0.3) H 10/06/17 12:19 Total Protein 6.0 g/dL (6.4-8.2) L 10/07/17 06:33 Albumin 2.5 g/dL (3.4-5.0) L 10/07/17 06:33 Vancomycin Trough 8.7 ug/mL (10.0-20.0) L 10/07/17 19:05
--- NOTE | 2017-10-08 10:35 | PDOC.PROG_ITS ---
Date of Service: 10/08/17 Time of Service: 10:33 Assessment/Plan - Assessment/Plan (1) Cellulitis Assessment: WBC now normal, aftbrile, will change to po ABX after ortho eval. (2) Olecranon bursitis of left elbow Assessment: probably reactive, would benefit from splint/protection. Will consult ortho History of Present Illness - History of Present Illness Chief Complaint: none History of Present Illness: Elbow feels better today, still very painful to move elbow Review of Systems - Review of Systems Constitutional: denies: Fever, Chills Musculoskeletal: Arm Pain - Medications/Allergies Allergies/Adverse Reactions: Allergies Allergy/AdvReac Type Severity Reaction Status Date / Time Sulfa (Sulfonamide Allergy Intermediate Skin Rash Unverified 10/06/17 11:56 Antibiotics) Medications: Current Medications Acetaminophen (Tylenol) 650 mg PO Q6H PRN PRN Last Admin: 10/07/17 20:00 Dose: 650 mg Acidophilus/Pectin (Acidophilus) 1 cap PO QMEALS [facility] Last Admin: 10/08/17 07:50 Dose: 1 cap Dimethicone/Zinc Oxide (Magda Protect Cream) 0 gm TP PRN PRN Diphenhydramine HCl (Benadryl) 25 mg PO HS [facility] Last Admin: 10/07/17 21:41 Dose: 25 mg Enoxaparin Sodium (Lovenox) 40 mg SC Q24H [facility] Last Admin: 10/07/17 13:44 Dose: 40 mg Piperacillin/Tazobactam/Dextrose (Zosyn) 3.375 gm in 50 mls @ 100 mls/hr IVPB Q6H [facility] Last Admin: 10/08/17 09:45 Dose: 100 mls/hr Vancomycin HCl 1,500 mg/ (Sodium Chloride) 500 mls @ 333.333 mls/hr IVPB Q8H [facility] Last Admin: 10/08/17 04:51 Dose: 333.333 mls/hr IV Miscellaneous Supplies () 1 each IV DIRECTED [facility] Ibuprofen (Motrin) 600 mg PO Q6H PRN PRN Last Admin: 10/08/17 08:12 Dose: 600 mg Ketorolac Tromethamine (Toradol Injection) 30 mg IVP HS PRN Stop: 10/12/17 21:59 Last Admin: 10/07/17 21:41 Dose: 30 mg Magnesium Hydroxide (Milk Of Magnesia) 30 ml PO DAILY PRN PRN Ondansetron HCl (Zofran Injection) 4 mg IVP Q4H PRN PRN Pantoprazole Sodium (Protonix) 40 mg PO DAILY [facility] Last Admin: 10/08/17 07:50 Dose: 40 mg Polyethylene Glycol (Miralax) 17 gm PO DAILY PRN PRN PRN Reason: Constipation Simvastatin (Zocor) 20 mg PO [facility] Last Admin: 10/07/17 21:42 Dose: 20 mg Sodium Chloride (Saline Flush 10 Ml Syringe) 0 ml IVP PRN PRN Last Admin: 10/08/17 09:44 Dose: 10 ml Objective - Exam Vitals and I&O: Vital Signs Temp 36.8 C 10/08/17 07:35 Pulse 71 10/08/17 07:35 Resp 24 10/08/17 07:35 BP 131/91 10/08/17 07:35 Pulse Ox 97 10/08/17 07:35 Intake & Output 10/07/17 10/07/17 10/08/17 11:59 23:59 11:59 Intake Total 1812 3524 580 Balance 1812 3524 580 Intake: IV 1202 2194 Oral 610 1330 580 Other: Urine Color Yellow Urine Appearance Clear Comment independantly independantly void x 3 during noc shift with last being a large void just prior to this time. Stool Occult Blood Negative Stool Size Copious Stool Characteristics Soft Brown Voiding Methods Toilet Toilet Toilet General: Alert, Oriented x3, Cooperative, No acute distress Extremities: Tenderness/swelling (small amount fluid palpated in olecranon bursa ) Skin: Significant lesion (erythema and tenderness and edema decreased) - Results Results: Laboratory Results WBC 5.74 k/cumm (4.4-10.8) 10/08/17 06:37 RBC 3.71 m/cumm (4.50-6.00) L 10/08/17 06:37 Hgb 11.7 g/dL (13.5-17.5) L 10/08/17 06:37 Hct 34.0 % (40.0-50.0) L 10/08/17 06:37 MCV 91.6 fL (80-95) 10/08/17 06:37 MCH 31.5 pg (27.0-33.0) 10/08/17 06:37 MCHC 34.4 g/dL (32.0-36.0) 10/08/17 06:37 RDW 12.0 % (11.8-14.1) 10/08/17 06:37 Plt Count 162 x1000/uL (130-400) 10/08/17 06:37 MPV 10.4 fL (8.0-11.0) 10/08/17 06:37 Immature Gran % 0.2 10/08/17 06:37 Neutrophils % 62.3 10/08/17 06:37 Lymphocytes % 21.4 10/08/17 06:37 Monocytes % 11.8 10/08/17 06:37 Eosinophils % 4.0 10/08/17 06:37 Basophils % 0.3 10/08/17 06:37 Absolute Neutrophils 3.57 k/cumm (1.2-6.7) 10/08/17 06:37 Absolute Lymphocytes 1.23 k/cumm (1.2-3.4) 10/08/17 06:37 Absolute Monocytes 0.68 k/cumm (0.11-0.7) 10/08/17 06:37 Absolute Eosinophils 0.23 k/cumm (0.0-0.7) 10/08/17 06:37 Absolute Basophils 0.02 k/cumm (0.0-0.2) 10/08/17 06:37 ESR 75 MM/HR (1-20) H 10/06/17 12:19 Sodium 137 mmol/L (136-145) 10/08/17 06:37 Potassium 3.7 mmol/L (3.5-5.1) 10/08/17 06:37 Chloride 106 mmol/L (98-107) 10/08/17 06:37 Carbon Dioxide 27.2 mmol/L (21.0-32.0) 10/08/17 06:37 Anion Gap 3.8 mmol/L (3-11) 10/08/17 06:37 BUN 11 mg/dL (7-18) 10/08/17 06:37 Creatinine 0.80 mg/dL (0.70-1.30) 10/08/17 06:37 Estimated GFR/1.73 m2 >= 60.00 (mL/min/1.73m2) 10/08/17 06:37 Glucose 93 mg/dL (70-100) 10/08/17 06:37 Lactate 1.0 mmol/L (0.6-1.4) 10/06/17 12:19 Calcium 7.9 mg/dL (8.5-10.1) L 10/08/17 06:37 Magnesium 2.1 mg/dL (1.8-2.4) 10/06/17 12:19 Total Bilirubin 0.8 mg/dL (0.2-1.0) 10/07/17 06:33 AST 41 U/L (15-37) H 10/07/17 06:33 ALT 55 U/L (12-78) 10/07/17 06:33 Alkaline Phosphatase 63 U/L (46-116) 10/07/17 06:33 C-Reactive Protein 21.11 mg/dL (0.0-0.3) H 10/06/17 12:19 Total Protein 6.0 g/dL (6.4-8.2) L 10/07/17 06:33 Albumin 2.5 g/dL (3.4-5.0) L 10/07/17 06:33 Vancomycin Trough 8.7 ug/mL (10.0-20.0) L 10/07/17 19:05
--- NOTE | 2017-10-08 10:38 | NUR.NOTE ---
Nursing Note: 10/08/17 1035 spoke with stalin at [facility] for daily report.
--- NOTE | 2017-10-08 11:41 | PDOC.CMPRO ---
Date of Service: 10/08/17 Time of Service: 11:41 Care Management Progress Note S/O: Yuan is doing well when CM visits this morning. Pt was presented at disciplinary rounds. Pt is an inmate at [facility] in [facility]. He is due to be released from half-way on 11/10 and will return to his home on [address] at that time. Pt is ankle shackled to bed and a corrections guard is in the room. He is engaged in conversation and makes good eye contact. Pt reports that his pain has diminished since yesterday; elbow remains warm to touch and red. Pt continues to receive IV fluids and antibiotics. A: 52 year old male admitted for cellulitis of the left elbow. P: [facility] by . Pt will be transported in [facility] van. No services are anticipated following discharge. CM will continue to provide support to patient, care team ongoing discharge planning and disposition.
--- NOTE | 2017-10-08 11:52 | CMPROGNOTE_ITS ---
Date of Service: 10/08/17 Time of Service: 11:41 Care Management Progress Note S/O: Yuan is doing well when CM visits this morning. Pt was presented at disciplinary rounds. Pt is an inmate at [facility] in [facility]. He is due to be released from care home on 11/10 and will return to his home on [facility] [address] [facility] at that time. Pt is ankle shackled to bed and a corrections guard is in the room. He is engaged in conversation and makes good eye contact. Pt reports that his pain has diminished since yesterday; elbow remains warm to touch and red. Pt continues to receive IV fluids and antibiotics. A: 52 year old male admitted for cellulitis of the left elbow. P: Yuan [facility] when medically cleared by . Pt will be transported in [facility] van. No services are anticipated following discharge. CM will continue to provide support to patient , care team ongoing discharge planning and disposition.
--- NOTE | 2017-10-08 14:05 | OCONE_ITS ---
DATE OF CONSULTATION: October 08, 2017 IMPRESSION: Septic olecranon bursitis with cellulitis. PLAN: Dr. De Jesus will be padding the elbow with a soft dressing and then a posterior splint so that light touch is not as sensitive on the elbow and the elbow stays still. Overall will continue with antibiotic therapy and continue to watch. No surgical intervention is needed at this point. Likely MRSA given the lack of initial response and the now improved response. --- I saw and examined the patient with REYNA Pyle. I agree with the documentation as above. The assessment and plan were formulated with my direct involvement. Mr. Vicente has what appears to be a septic olecranon bursitis of the left elbow. It is improving. The redness has diminished both in size and intensity. My suspicion is that this is MRSA related. I prefer to avoid any aspiration if possible as it is always possible to have a chronically draining wound from the aspiration. Since it is improving I would continue the IV antibiotics until we feel clinical improvement is acceptable and then transition to oral antibiotics with MRSA coverage. I placed him into a posterior slab splint which was well-padded. I will reexamine in the morning. Continue routine cellulitis, bursitis, care. Aguilar De Jesus MD. ++++++++++++++++++++++++ REASON FOR CONSULTATION: Yuan was admitted to the hospital due to some left elbow pain. 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 That night, which was about a week ago, he noticed the elbow was very sensitive to even light touch when he was just trying to rest his elbows on top of a table. Over the next few days the left elbow started getting significantly swollen and red and also significantly painful, even with range of motion. So he came to the Emergency Room and has been started on antibiotics. He says that since the antibiotic has started, especially over the last couple of days, the elbow has significantly decreased in swelling and redness, and also the pain is much better as well. He still is quite tender whenever he rests it on something or tries to move his elbow too much; but overall feels as though he is improving. PHYSICAL EXAM: Physical exam of the left elbow shows that there is some erythema around the olecranon. The olecranon appears to be the center of the erythema and swelling. He is significantly painful to palpation over the olecranon with fullness in the olecranon as well. He is able to move the elbow in at least 90 degrees of arc, though he does get pain at end motion of about 20 degrees of extension; he does not want to continue extending because of pain. He has pain to palpation around both the epicondyle and just proximal and distal to the olecranon. He also has some numbness and tingling in his little finger and ring finger that is worse with Tinel's.
[2017-10-08] MEDS: Enoxaparin 40 MG/0.4 ML SYR SC (14:13)
[2017-10-08 16:20] VITALS: BP 110/83; PULSE 75; RESP 20; TEMP 37.7; O2SAT 95
[2017-10-08] MEDS: Ketorolac 30 MG/ML VIAL IVP (16:37)
[2017-10-08] MEDS: Acetaminophen 325 MG TAB 650 MG PO (20:06)
[2017-10-08 21:21] VITALS: BP 130/66; PULSE 80; RESP 16; TEMP 37.9; O2SAT 95
[2017-10-08] MEDS: diphenhydrAMINE 25 MG CAP PO (22:10)
[2017-10-08] MEDS: Simvastatin 20 MG TAB PO (22:10)
[2017-10-08 23:55] VITALS: BP 117/75; PULSE 74; RESP 18; TEMP 37.3; O2SAT 96
[2017-10-09] MEDS: VANCOMYCIN 1,500 MG in Normal Saline 500 ML 333.333 MG IVPB (04:46)
[2017-10-09 07:42] VITALS: BP 128/76; PULSE 78; RESP 22; TEMP 37.1; O2SAT 96
--- NOTE | 2017-10-09 07:59 | PROG.BLANK ---
Date of Service: 10/09/17 Time of Service: 07:59 Progress Note S - Gianni is doing well. He is not sure if the splint helped but he didn't bump it as much on the bed rail. He denies any fever or chills. He has no new symptoms. He is able to move the elbow but it does cause pain towards the end of motion. No distal numbness or tingling. O - Vital Signs - 24 hr 10/08/17 10/08/17 10/08/17 16:20 21:21 23:55 Temperature 37.7 C H 37.9 C H 37.3 C Pulse 75 80 74 Respiratory 20 16 18 Rate Blood Pressure 110/83 130/66 117/75 Pulse Oximetry 95 95 96 Left elbow has resolving erythema, definitely more muted in color and within the previous kimble. There is some induration to the area which is tender but no discrete fluid collection except for some bogginess over the olecranon. He tolerates some motion without pain although has pain at the ends of motion. A/P - Improving septic olecranon bursitis from likely MRSA. I think stopping the Zosyn is reasonable. A transition to oral agents is possible but it must have some coverage for MRSA given the previous failure of Cephalexin and Ceftriaxone. No indication to tap, drain, or open up at this time. SPlint or soft dressing for comfort.
[2017-10-09] MEDS: Pantoprazole 40 MG TABCR PO (08:29)
[2017-10-09] MEDS: Lactobacillus Acidophilus CAP 1 CAP PO ×3 (08:29→16:03)
[2017-10-09 09:20] VITALS: O2SAT 96
[2017-10-09] MEDS: Doxycycline Hyclate 100 MG CAP PO (10:55)
[2017-10-09] MEDS: Cefdinir 300 MG CAP PO (10:55)
--- NOTE | 2017-10-09 12:01 | CMPROGNOTE_ITS ---
Date of Service: 10/09/17 Time of Service: 11:59 Care Management Progress Note S/O: Yuan is doing well when CM visits this morning. Pt was presented at disciplinary rounds. Pt is an inmate at [facility] in [facility]. He is due to be released from shelter on 11/10 and will return to his home on [facility] at that time. Pt is ankle shackled to bed and a corrections guard is in the room. He is engaged in conversation and makes good eye contact. Pt reports that his pain has diminished since yesterday; elbow remains warm to touch and red. Pt continues to receive IV fluids. PO antibiotics will be administered beginning today. Dr. De Jesus has fitted Yuan with an arm splint which he is not wearing at the time of meeting. A: 52 year old male admitted for cellulitis of the left elbow. P: [facility] when medically cleared by . Pt will be transported in Corrections van. No services are anticipated following discharge. CM will continue to provide support to patient , care team ongoing discharge planning and disposition.
[2017-10-09] MEDS: Enoxaparin 40 MG/0.4 ML SYR SC (13:34)
[2017-10-09 15:43] VITALS: BP 117/82; PULSE 84; RESP 18; TEMP 38.4; O2SAT 97
[2017-10-09 16:03] VITALS: TEMP 38.4
[2017-10-09] MEDS: Acetaminophen 325 MG TAB 650 MG PO ×2 (16:03→21:59)
--- NOTE | 2017-10-09 16:46 | PDOC.PROG ---
Date of Service: 10/09/17 Time of Service: 16:46 Assessment/Plan - Assessment/Plan (1) Olecranon bursitis of left elbow Assessment: d/w Dr. De Jesus, Bre Escobar, SUMANTH at [facility]. Switch to PO today, if makes good improvement d/c tomorrow, if equivocal d/c Saturday, if worsens will need prolonged course of IV ABX. He can wear solid posterior splint at the snf History of Present Illness - History of Present Illness Chief Complaint: no specific c/o History of Present Illness: In general continues to improve Review of Systems - Review of Systems Constitutional: denies: Fever, Chills - Medications/Allergies Allergies/Adverse Reactions: Allergies Allergy/AdvReac Type Severity Reaction Status Date / Time Sulfa (Sulfonamide Allergy Intermediate Skin Rash Unverified 10/06/17 11:56 Antibiotics) Medications: Current Medications Acetaminophen (Tylenol) 650 mg PO Q6H PRN PRN Last Admin: 10/09/17 16:03 Dose: 650 mg Acidophilus/Pectin (Acidophilus) 1 cap PO QMEALS [facility] Last Admin: 10/09/17 16:03 Dose: 1 cap Cefdinir (Omnicef) 300 mg PO Q12H [facility] Last Admin: 10/09/17 10:55 Dose: 300 mg Dimethicone/Zinc Oxide (Magda Protect Cream) 0 gm TP PRN PRN Diphenhydramine HCl (Benadryl) 25 mg PO HS [facility] Last Admin: 10/08/17 22:10 Dose: 25 mg Doxycycline Hyclate (Vibramycin) 100 mg PO BID [facility] Enoxaparin Sodium (Lovenox) 40 mg SC Q24H [facility] Last Admin: 10/09/17 13:34 Dose: 40 mg IV Miscellaneous Supplies () 1 each IV DIRECTED [facility] Ketorolac Tromethamine (Toradol Injection) 30 mg IVP HS PRN Stop: 10/12/17 21:59 Last Admin: 10/08/17 16:37 Dose: 30 mg Magnesium Hydroxide (Milk Of Magnesia) 30 ml PO DAILY PRN PRN Naproxen (Naprosyn) 375 mg PO TID PRN Ondansetron HCl (Zofran Injection) 4 mg IVP Q4H PRN PRN Pantoprazole Sodium (Protonix) 40 mg PO DAILY [facility] Last Admin: 10/09/17 08:29 Dose: 40 mg Polyethylene Glycol (Miralax) 17 gm PO DAILY PRN PRN PRN Reason: Constipation Simvastatin (Zocor) 20 mg PO HS [facility] Last Admin: 10/08/17 22:10 Dose: 20 mg Sodium Chloride (Saline Flush 10 Ml Syringe) 0 ml IVP PRN PRN Last Admin: 10/08/17 20:05 Dose: 10 ml Objective - Exam Vitals and I&O: Vital Signs Temp 38.4 C H 10/09/17 16:03 Pulse 84 10/09/17 15:43 Resp 18 10/09/17 15:43 BP 117/82 10/09/17 15:43 Pulse Ox 97 10/09/17 15:43 Intake & Output 10/08/17 10/09/17 10/09/17 23:59 11:59 23:59 Intake Total 500 2286 120 Balance 500 2286 120 Intake: IV 1336 Oral 500 950 120 Other: Comment Pt voiding in toilet independently. Voiding Methods Toilet General: Alert, Oriented x3, Cooperative Skin: Significant lesion (erythema and edema and tenderness decreasing) - Results Results: Laboratory Results WBC 5.74 k/cumm (4.4-10.8) 10/08/17 06:37 RBC 3.71 m/cumm (4.50-6.00) L 10/08/17 06:37 Hgb 11.7 g/dL (13.5-17.5) L 10/08/17 06:37 Hct 34.0 % (40.0-50.0) L 10/08/17 06:37 MCV 91.6 fL (80-95) 10/08/17 06:37 MCH 31.5 pg (27.0-33.0) 10/08/17 06:37 MCHC 34.4 g/dL (32.0-36.0) 10/08/17 06:37 RDW 12.0 % (11.8-14.1) 10/08/17 06:37 Plt Count 162 x1000/uL (130-400) 10/08/17 06:37 MPV 10.4 fL (8.0-11.0) 10/08/17 06:37 Immature Gran % 0.2 10/08/17 06:37 Neutrophils % 62.3 06/26/18 06:37 Lymphocytes % 21.4 10/08/17 06:37 Monocytes % 11.8 10/08/17 06:37 Eosinophils % 4.0 10/08/17 06:37 Basophils % 0.3 10/08/17 06:37 Absolute Neutrophils 3.57 k/cumm (1.2-6.7) 10/08/17 06:37 Absolute Lymphocytes 1.23 k/cumm (1.2-3.4) 10/08/17 06:37 Absolute Monocytes 0.68 k/cumm (0.11-0.7) 10/08/17 06:37 Absolute Eosinophils 0.23 k/cumm (0.0-0.7) 10/08/17 06:37 Absolute Basophils 0.02 k/cumm (0.0-0.2) 10/08/17 06:37 ESR 75 MM/HR (1-20) H 10/06/17 12:19 Sodium 137 mmol/L (136-145) 10/08/17 06:37 Potassium 3.7 mmol/L (3.5-5.1) 10/08/17 06:37 Chloride 106 mmol/L (98-107) 10/08/17 06:37 Carbon Dioxide 27.2 mmol/L (21.0-32.0) 10/08/17 06:37 Anion Gap 3.8 mmol/L (3-11) 10/08/17 06:37 BUN 11 mg/dL (7-18) 10/08/17 06:37 Creatinine 0.80 mg/dL (0.70-1.30) 10/08/17 06:37 Estimated GFR/1.73 m2 >= 60.00 (mL/min/1.73m2) 10/08/17 06:37 Glucose 93 mg/dL (70-100) 10/08/17 06:37 Lactate 1.0 mmol/L (0.6-1.4) 10/06/17 12:19 Calcium 7.9 mg/dL (8.5-10.1) L 10/08/17 06:37 Magnesium 2.1 mg/dL (1.8-2.4) 10/06/17 12:19 Total Bilirubin 0.8 mg/dL (0.2-1.0) 10/07/17 06:33 AST 41 U/L (15-37) H 10/07/17 06:33 ALT 55 U/L (12-78) 10/07/17 06:33 Alkaline Phosphatase 63 U/L (46-116) 10/07/17 06:33 C-Reactive Protein 21.11 mg/dL (0.0-0.3) H 10/06/17 12:19 Total Protein 6.0 g/dL (6.4-8.2) L 10/07/17 06:33 Albumin 2.5 g/dL (3.4-5.0) L 10/07/17 06:33 Vancomycin Trough 8.7 ug/mL (10.0-20.0) L 10/07/17 19:05
--- NOTE | 2017-10-09 16:50 | PDOC.PROG_ITS ---
Date of Service: 10/09/17 Time of Service: 16:46 Assessment/Plan - Assessment/Plan (1) Olecranon bursitis of left elbow Assessment: d/w Dr. De Jesus, Bre Escobar, SUMANTH at [facility]. Switch to PO today, if makes good improvement d/c tomorrow, if equivocal d/c Saturday, if worsens will need prolonged course of IV ABX. He can wear solid posterior splint at the snf History of Present Illness - History of Present Illness Chief Complaint: no specific c/o History of Present Illness: In general continues to improve Review of Systems - Review of Systems Constitutional: denies: Fever, Chills - Medications/Allergies Allergies/Adverse Reactions: Allergies Allergy/AdvReac Type Severity Reaction Status Date / Time Sulfa (Sulfonamide Allergy Intermediate Skin Rash Unverified 10/06/17 11:56 Antibiotics) Medications: Current Medications Acetaminophen (Tylenol) 650 mg PO Q6H PRN PRN Last Admin: 10/09/17 16:03 Dose: 650 mg Acidophilus/Pectin (Acidophilus) 1 cap PO QMEALS [facility] Last Admin: 10/09/17 16:03 Dose: 1 cap Cefdinir (Omnicef) 300 mg PO Q12H [facility] Last Admin: 10/09/17 10:55 Dose: 300 mg Dimethicone/Zinc Oxide (Magda Protect Cream) 0 gm TP PRN PRN Diphenhydramine HCl (Benadryl) 25 mg PO HS [facility] Last Admin: 10/08/17 22:10 Dose: 25 mg Doxycycline Hyclate (Vibramycin) 100 mg PO BID [facility] Enoxaparin Sodium (Lovenox) 40 mg SC Q24H [facility] Last Admin: 10/09/17 13:34 Dose: 40 mg IV Miscellaneous Supplies () 1 each IV DIRECTED [facility] Ketorolac Tromethamine (Toradol Injection) 30 mg IVP HS PRN Stop: 10/12/17 21:59 Last Admin: 10/08/17 16:37 Dose: 30 mg Magnesium Hydroxide (Milk Of Magnesia) 30 ml PO DAILY PRN PRN Naproxen (Naprosyn) 375 mg PO TID PRN Ondansetron HCl (Zofran Injection) 4 mg IVP Q4H PRN PRN Pantoprazole Sodium (Protonix) 40 mg PO DAILY [facility] Last Admin: 10/09/17 08:29 Dose: 40 mg Polyethylene Glycol (Miralax) 17 gm PO DAILY PRN PRN PRN Reason: Constipation Simvastatin (Zocor) 20 mg PO HS [facility] Last Admin: 10/08/17 22:10 Dose: 20 mg Sodium Chloride (Saline Flush 10 Ml Syringe) 0 ml IVP PRN PRN Last Admin: 10/08/17 20:05 Dose: 10 ml Objective - Exam Vitals and I&O: Vital Signs Temp 38.4 C H 10/09/17 16:03 Pulse 84 10/09/17 15:43 Resp 18 10/09/17 15:43 BP 117/82 10/09/17 15:43 Pulse Ox 97 10/09/17 15:43 Intake & Output 10/08/17 10/09/17 10/09/17 23:59 11:59 23:59 Intake Total 500 2286 120 Balance 500 2286 120 Intake: IV 1336 Oral 500 950 120 Other: Comment Pt voiding in toilet independently. Voiding Methods Toilet General: Alert, Oriented x3, Cooperative Skin: Significant lesion (erythema and edema and tenderness decreasing) - Results Results: Laboratory Results WBC 5.74 k/cumm (4.4-10.8) 10/08/17 06:37 RBC 3.71 m/cumm (4.50-6.00) L 10/08/17 06:37 Hgb 11.7 g/dL (13.5-17.5) L 10/08/17 06:37 Hct 34.0 % (40.0-50.0) L 10/08/17 06:37 MCV 91.6 fL (80-95) 10/08/17 06:37 MCH 31.5 pg (27.0-33.0) 10/08/17 06:37 MCHC 34.4 g/dL (32.0-36.0) 10/08/17 06:37 RDW 12.0 % (11.8-14.1) 10/08/17 06:37 Plt Count 162 x1000/uL (130-400) 10/08/17 06:37 MPV 10.4 fL (8.0-11.0) 10/08/17 06:37 Immature Gran % 0.2 10/08/17 06:37 Neutrophils % 62.3 06/26/18 06:37 Lymphocytes % 21.4 10/08/17 06:37 Monocytes % 11.8 10/08/17 06:37 Eosinophils % 4.0 10/08/17 06:37 Basophils % 0.3 10/08/17 06:37 Absolute Neutrophils 3.57 k/cumm (1.2-6.7) 10/08/17 06:37 Absolute Lymphocytes 1.23 k/cumm (1.2-3.4) 10/08/17 06:37 Absolute Monocytes 0.68 k/cumm (0.11-0.7) 10/08/17 06:37 Absolute Eosinophils 0.23 k/cumm (0.0-0.7) 10/08/17 06:37 Absolute Basophils 0.02 k/cumm (0.0-0.2) 10/08/17 06:37 ESR 75 MM/HR (1-20) H 10/06/17 12:19 Sodium 137 mmol/L (136-145) 10/08/17 06:37 Potassium 3.7 mmol/L (3.5-5.1) 10/08/17 06:37 Chloride 106 mmol/L (98-107) 10/08/17 06:37 Carbon Dioxide 27.2 mmol/L (21.0-32.0) 10/08/17 06:37 Anion Gap 3.8 mmol/L (3-11) 10/08/17 06:37 BUN 11 mg/dL (7-18) 10/08/17 06:37 Creatinine 0.80 mg/dL (0.70-1.30) 10/08/17 06:37 Estimated GFR/1.73 m2 >= 60.00 (mL/min/1.73m2) 10/08/17 06:37 Glucose 93 mg/dL (70-100) 10/08/17 06:37 Lactate 1.0 mmol/L (0.6-1.4) 10/06/17 12:19 Calcium 7.9 mg/dL (8.5-10.1) L 10/08/17 06:37 Magnesium 2.1 mg/dL (1.8-2.4) 10/06/17 12:19 Total Bilirubin 0.8 mg/dL (0.2-1.0) 10/07/17 06:33 AST 41 U/L (15-37) H 10/07/17 06:33 ALT 55 U/L (12-78) 10/07/17 06:33 Alkaline Phosphatase 63 U/L (46-116) 10/07/17 06:33 C-Reactive Protein 21.11 mg/dL (0.0-0.3) H 10/06/17 12:19 Total Protein 6.0 g/dL (6.4-8.2) L 10/07/17 06:33 Albumin 2.5 g/dL (3.4-5.0) L 10/07/17 06:33 Vancomycin Trough 8.7 ug/mL (10.0-20.0) L 10/07/17 19:05
[2017-10-09 17:03] VITALS: TEMP 38
[2017-10-09] MEDS: VANCOMYCIN 1,500 MG in Normal Saline 500 ML 333.3333 MG IVPB (19:24)
[2017-10-09] MEDS: Normal Saline Flush 10 ML SYR IVP (19:25)
[2017-10-09] MEDS: diphenhydrAMINE 25 MG CAP PO (21:59)
[2017-10-09] MEDS: Simvastatin 20 MG TAB PO (22:00)
[2017-10-09] MEDS: Ketorolac 30 MG/ML VIAL IVP (22:00)
[2017-10-10 00:05] VITALS: BP 120/61; PULSE 60; RESP 18; TEMP 36.8; O2SAT 96
[2017-10-10] MEDS: VANCOMYCIN 1,500 MG in Normal Saline 500 ML 333.3333 MG IVPB ×3 (02:26→17:49)
[2017-10-10] MEDS: Normal Saline Flush 10 ML SYR IVP ×4 (02:26→21:57)
[2017-10-10 07:05] LABS: HGB 12.9 g/dL (13.5-17.5); Mean Corp. HGB Concentration 34.9 g/dL (32.0-36.0); Mean Corpuscular Hemoglobin 31.5 pg (27.0-33.0); Mean Corpuscular Volume 90.5 fL (80-95); Mean Platelet Volume 9.9 fL (8.0-11.0); Platelet Count 210 x1000/uL (130-400); RBC 4.09 m/cumm (4.50-6.00); RBC Distribution Width 11.7 % (11.8-14.1); White Blood Cell Count 7.49 k/cumm (4.4-10.8)
[2017-10-10 07:55] VITALS: BP 105/71; PULSE 75; RESP 18; TEMP 36.2; O2SAT 95
[2017-10-10 07:58] LABS: ESR 78 MM/HR (1-20)
[2017-10-10] MEDS: Pantoprazole 40 MG TABCR PO (08:39)
[2017-10-10] MEDS: Lactobacillus Acidophilus CAP 1 CAP PO ×3 (08:39→17:49)
[2017-10-10] MEDS: Naproxen 375 MG TAB PO ×2 (08:39→17:48)
[2017-10-10 08:52] LABS: C-Reactive Protein 6.79 mg/dL (0.0-0.3)
[2017-10-10 11:10] VITALS: BP 120/81; PULSE 63; RESP 17; TEMP 36.8; O2SAT 96
--- NOTE | 2017-10-10 13:23 | PDOC.CMPRO ---
Date of Service: 10/10/17 Time of Service: 13:23 Care Management Progress Note S/O: Yuan is lying in bed when this commercial underwriter visits this morning, he has a Cell Installer at the bedside. Per morning meeting, Yuan was febrile overnight, therefore did not tolerate the change from IV to PO antibiotics. Dr. Zamarripa states that Yuan has transitioned back to IV Vanco and will continue on this at this time. Yuna will [facility] to the [facility] once medically cleared. A: 52 year old male admitted for cellulitis of the left elbow. P: Yuan will [facility] to the [facility] when medically cleared by . He will be transported in Corrections van. No services are anticipated following discharge. CM will continue to provide support to patient, care team ongoing discharge planning and disposition.
--- NOTE | 2017-10-10 14:58 | PROG.BLANK ---
Date of Service: 10/10/17 Time of Service: 13:40 Progress Note Subjective: Yuan was started on oral antibiotics yesterday. Very soon after starting an oral antibiotics he noted an increase in fever and chills overnight. He has now resumed the vancomycin with a complete resolution of those symptoms. He still feels better in the left elbow itself. There is exquisite pain over the olecranon but the area of induration, pain, and swelling is decreasing per his report. No new symptoms. Objective: Vital Signs - 24 hr 10/09/17 10/09/17 10/09/17 15:43 16:03 17:03 Temperature 38.4 C H 38.4 C H 38.0 C H Pulse 84 Respiratory 18 Rate Blood Pressure 117/82 Pulse Oximetry 97 10/10/17 10/10/17 10/10/17 00:05 07:55 11:10 Temperature 36.8 C 36.2 C L 36.8 C Pulse 60 75 63 Respiratory 18 18 17 Rate Blood Pressure 120/61 105/71 120/81 Pulse Oximetry 96 95 96 Evaluation left elbow shows an area of hyperemia centered around the olecranon just distal to it. Is well within the previous kimble. The amount of swelling and induration of the skin is significantly decreased when compared to previous visits. He tolerates more active and passive range of motion with less pain. However, he has exquisite tenderness overlying the olecranon with some fullness and fluctuance in this area. Assessment and plan: Yuan is a 52-year-old with a septic leg on bursitis left side. It is resolving with antibiotics. He likely has an MRSA infection. I prefer to avoid making this an open injury as long as it stays closed. I recommend continue with the IV antibiotics and follow clinically. He may need to consider Zyvox as an oral option.
[2017-10-10] MEDS: Enoxaparin 40 MG/0.4 ML SYR SC (15:22)
[2017-10-10 17:21] LABS: Vancomycin, Trough 17.9 ug/mL (10.0-20.0)
[2017-10-10 17:38] VITALS: BP 107/70; PULSE 67; RESP 18; TEMP 36.7; O2SAT 96
[2017-10-10] MEDS: diphenhydrAMINE 25 MG CAP PO (21:54)
[2017-10-10] MEDS: Simvastatin 20 MG TAB PO (21:54)
[2017-10-10] MEDS: Ketorolac 30 MG/ML VIAL IVP (21:55)
[2017-10-11] MEDS: VANCOMYCIN 1,500 MG in Normal Saline 500 ML 333.3333 MG IVPB ×3 (02:09→19:14)
[2017-10-11] MEDS: Normal Saline Flush 10 ML SYR IVP ×4 (02:11→19:14)
[2017-10-11 05:00] VITALS: BP 121/74; PULSE 60; RESP 18; TEMP 36.8; O2SAT 96
[2017-10-11 07:12] LABS: Abs Immature Grans 0.03 k/cumm (0.0-0.09); Absolute Basophil Count 0.03 k/cumm (0.0-0.2); Absolute Eosinophil Count 0.47 k/cumm (0.0-0.7); Absolute Lymphocyte Count 1.42 k/cumm (1.2-3.4); Absolute Monocyte Count 0.65 k/cumm (0.11-0.7); Absolute Neutrophil Count 3.83 k/cumm (1.2-6.7); Basophils % 0.5; Eosinophils % 7.3; HCT 38.9 % (40.0-50.0); HGB 13.4 g/dL (13.5-17.5); Immature Grans % 0.5; Lymphocytes % 22.1; Mean Corp. HGB Concentration 34.4 g/dL (32.0-36.0); Mean Corpuscular Hemoglobin 31.2 pg (27.0-33.0); Mean Corpuscular Volume 90.7 fL (80-95); Mean Platelet Volume 9.9 fL (8.0-11.0); Monocytes % 10.1; Neutrophils % 59.5; Platelet Count 200 x1000/uL (130-400); RBC 4.29 m/cumm (4.50-6.00); RBC Distribution Width 11.8 % (11.8-14.1); White Blood Cell Count 6.43 k/cumm (4.4-10.8)
[2017-10-11 07:23] LABS: Anion Gap 7.2 mmol/L (3-11); BUN 16 mg/dL (7-18); C-Reactive Protein 4.58 mg/dL (0.0-0.3); CO2 26.8 mmol/L (21.0-32.0); CREATININE 0.91 mg/dL (0.70-1.30); Calcium 8.4 mg/dL (8.5-10.1); Chloride 105 mmol/L (98-107); Glucose 95 mg/dL (70-100); Sodium 139 mmol/L (136-145)
[2017-10-11] MEDS: Lactobacillus Acidophilus CAP 1 CAP PO ×3 (07:30→17:57)
[2017-10-11] MEDS: Pantoprazole 40 MG TABCR PO (07:30)
[2017-10-11 07:35] VITALS: O2SAT 94
[2017-10-11 07:45] VITALS: BP 104/71; PULSE 65; RESP 18; TEMP 36.3; O2SAT 95
[2017-10-11 07:56] LABS: ESR 70 MM/HR (1-20)
--- NOTE | 2017-10-11 09:49 | PDOC.CMPRO ---
Date of Service: 10/11/17 Time of Service: 09:49 Care Management Progress Note S/O: Yuan is doing well when CM visits this morning. Pt was presented at disciplinary rounds. Pt is an inmate at [facility] in [facility]. He is due to be released from detention on 11/10 and will return to his home on [facility] at that time. Pt is ankle shackled to bed and a corrections guard is in the room. He is engaged in conversation and makes good eye contact. Pt reports that his pain has diminished since yesterday; elbow remains warm to touch and red. PO antibiotics were begun on 10/09 following discontinuing of the IV abx. Pt became febrile with chills/sweats and increasing pain. IV vanco resumed and PO antibiotics discontinued. Dr. De Jesus has fit Yuan with an arm splint to minimize movement and protect the elbow. Pt is requesting a shower; CM passed request on to ALDA Fishman A: 52 year old male admitted for cellulitis of the left elbow. P: Yuan will [facility] back to the [facility] when medically cleared by . Pt will be transported in Corrections van. No services are anticipated following discharge. CM will continue to provide support to patient, care team ongoing discharge planning and disposition.
--- NOTE | 2017-10-11 10:01 | CMPROGNOTE_ITS ---
Date of Service: 10/11/17 Time of Service: 09:49 Care Management Progress Note S/O: Yuan is doing well when CM visits this morning. Pt was presented at disciplinary rounds. Pt is an inmate at [facility] in [facility]. He is [facility] to be [facility]10 and will return to his home on [facility] at that time. Pt is ankle shackled to bed and a corrections guard is in the room. He is engaged in conversation and makes good eye contact. Pt reports that his pain has diminished since yesterday; elbow remains warm to touch and red. PO antibiotics were begun on 10/09 following discontinuing of the IV abx. Pt became febrile with chills/sweats and increasing pain. IV vanco resumed and PO antibiotics discontinued. Dr. De Jesus has fit Yuan with an arm splint to minimize movement and protect the elbow. Pt is requesting a shower; CM passed request on to ALDA Fishman A: 52 year old male admitted for cellulitis of the left elbow. P: Yuan will [facility] the [facility] when medically cleared by . Pt will be transported in Corrections van. No services are anticipated following discharge. CM will continue to provide support to patient , care team ongoing discharge planning and disposition.
[2017-10-11] MEDS: Enoxaparin 40 MG/0.4 ML SYR SC (13:53)
[2017-10-11 17:29] VITALS: BP 127/78; PULSE 67; RESP 17; TEMP 36.3; O2SAT 98
[2017-10-11] MEDS: Normal Saline 500 ML 333 ML IV (19:15)
[2017-10-11] MEDS: diphenhydrAMINE 25 MG CAP PO (21:04)
[2017-10-11] MEDS: Simvastatin 20 MG TAB PO (21:04)
[2017-10-12 01:07] VITALS: BP 129/87; PULSE 70; RESP 20; TEMP 37.2; O2SAT 94
[2017-10-12] MEDS: VANCOMYCIN 1,500 MG in Normal Saline 500 ML 333.3333 MG IVPB ×2 (02:19→10:11)
[2017-10-12] MEDS: Normal Saline Flush 10 ML SYR IVP ×4 (02:19→22:13)
--- NOTE | 2017-10-12 06:23 | PDOC.PROG ---
Date of Service: 10/10/17 Time of Service: 18:30 Assessment/Plan - Assessment/Plan (1) Olecranon bursitis of left elbow Assessment: Fever, CRP/ESR rising, failure of po abx. Resume vanco alone. Will likely require several days of IV Abx, rest, immobilization. (2) Cellulitis Assessment: This continues to improve slowly History of Present Illness - History of Present Illness Chief Complaint: pain History of Present Illness: The patient has fever and chills and increased pain after switching to doxycycline and ceftin. Review of Systems - Review of Systems Constitutional: Fever, Chills - Medications/Allergies Allergies/Adverse Reactions: Allergies Allergy/AdvReac Type Severity Reaction Status Date / Time Sulfa (Sulfonamide Allergy Intermediate Skin Rash Unverified 10/06/17 11:56 Antibiotics) Medications: Current Medications Acetaminophen (Tylenol) 650 mg PO Q6H PRN PRN Last Admin: 10/09/17 21:59 Dose: 650 mg Acidophilus/Pectin (Acidophilus) 1 cap PO QMEALS [facility] Last Admin: 10/11/17 17:57 Dose: 1 cap Dimethicone/Zinc Oxide (Magda Protect Cream) 0 gm TP PRN PRN Diphenhydramine HCl (Benadryl) 25 mg PO HS [facility] Last Admin: 10/11/17 21:04 Dose: 25 mg Enoxaparin Sodium (Lovenox) 40 mg SC Q24H [facility] Last Admin: 10/11/17 13:53 Dose: 40 mg Vancomycin HCl 1,500 mg/ (Sodium Chloride) 500 mls @ 333.3333 mls/hr IVPB Q8H [facility] PRN Reason: Protocol Last Admin: 10/12/17 02:19 Dose: 333.3333 mls/hr Sodium Chloride (Saline 500ml Bag) 500 mls @ 0 mls/hr IV PRN PRN PRN Reason: As Directed Last Admin: 10/11/17 19:15 Dose: 333 mls/hr IV Miscellaneous Supplies () 1 each IV DIRECTED [facility] Ketorolac Tromethamine (Toradol Injection) 30 mg IVP HS PRN Stop: 10/12/17 21:59 Last Admin: 10/10/17 21:55 Dose: 30 mg Magnesium Hydroxide (Milk Of Magnesia) 30 ml PO DAILY PRN PRN Naproxen (Naprosyn) 375 mg PO TID PRN Last Admin: 10/10/17 17:48 Dose: 375 mg Ondansetron HCl (Zofran Injection) 4 mg IVP Q4H PRN PRN Pantoprazole Sodium (Protonix) 40 mg PO DAILY [facility] Last Admin: 10/11/17 07:30 Dose: 40 mg Polyethylene Glycol (Miralax) 17 gm PO DAILY PRN PRN PRN Reason: Constipation Simvastatin (Zocor) 20 mg PO HS [facility] Last Admin: 10/11/17 21:04 Dose: 20 mg Sodium Chloride (Saline Flush 10 Ml Syringe) 0 ml IVP PRN PRN Last Admin: 10/12/17 02:19 Dose: 20 ml Objective - Exam Vitals and I&O: Vital Signs Temp 37.2 C 10/12/17 01:07 Pulse 70 10/12/17 01:07 Resp 20 10/12/17 01:07 BP 129/87 10/12/17 01:07 Pulse Ox 94 L 10/12/17 01:07 Intake & Output 10/11/17 10/11/17 10/12/17 11:59 23:59 11:59 Intake Total 1930 2799 600 Balance 1930 2799 600 Intake: IV 630 1319 600 Oral 1300 1480 Other: Urine Appearance Clear Comment pt voiding independnetly in the toilet and flushing. denies any problesm Voiding Methods Toilet General: Alert, Oriented x3, Cooperative, No acute distress Skin: Significant lesion - Results Results: Laboratory Results WBC 6.43 k/cumm (4.4-10.8) 10/11/17 06:58 RBC 4.29 m/cumm (4.50-6.00) L 10/11/17 06:58 Hgb 13.4 g/dL (13.5-17.5) L 10/11/17 06:58 Hct 38.9 % (40.0-50.0) L 10/11/17 06:58 MCV 90.7 fL (80-95) 10/11/17 06:58 MCH 31.2 pg (27.0-33.0) 10/11/17 06:58 MCHC 34.4 g/dL (32.0-36.0) 10/11/17 06:58 RDW 11.8 % (11.8-14.1) 10/11/17 06:58 Plt Count 200 x1000/uL (130-400) 10/11/17 06:58 MPV 9.9 fL (8.0-11.0) 10/11/17 06:58 Immature Gran % 0.5 10/11/17 06:58 Neutrophils % 59.5 10/11/17 06:58 Lymphocytes % 22.1 10/11/17 06:58 Monocytes % 10.1 10/11/17 06:58 Eosinophils % 7.3 10/11/17 06:58 Basophils % 0.5 10/11/17 06:58 Absolute Neutrophils 3.83 k/cumm (1.2-6.7) 10/11/17 06:58 Absolute Lymphocytes 1.42 k/cumm (1.2-3.4) 10/11/17 06:58 Absolute Monocytes 0.65 k/cumm (0.11-0.7) 10/11/17 06:58 Absolute Eosinophils 0.47 k/cumm (0.0-0.7) 10/11/17 06:58 Absolute Basophils 0.03 k/cumm (0.0-0.2) 10/11/17 06:58 ESR 70 MM/HR (1-20) H 10/11/17 06:58 Sodium 139 mmol/L (136-145) 10/11/17 06:58 Potassium 4.0 mmol/L (3.5-5.1) 10/11/17 06:58 Chloride 105 mmol/L (98-107) 10/11/17 06:58 Carbon Dioxide 26.8 mmol/L (21.0-32.0) 10/11/17 06:58 Anion Gap 7.2 mmol/L (3-11) 10/11/17 06:58 BUN 16 mg/dL (7-18) 10/11/17 06:58 Creatinine 0.91 mg/dL (0.70-1.30) 10/11/17 06:58 Estimated GFR/1.73 m2 >= 60.00 (mL/min/1.73m2) 10/11/17 06:58 Glucose 95 mg/dL (70-100) 10/11/17 06:58 Lactate 1.0 mmol/L (0.6-1.4) 10/06/17 12:19 Calcium 8.4 mg/dL (8.5-10.1) L 10/11/17 06:58 Magnesium 2.1 mg/dL (1.8-2.4) 10/06/17 12:19 Total Bilirubin 0.8 mg/dL (0.2-1.0) 10/07/17 06:33 AST 41 U/L (15-37) H 10/07/17 06:33 ALT 55 U/L (12-78) 10/07/17 06:33 Alkaline Phosphatase 63 U/L (46-116) 10/07/17 06:33 C-Reactive Protein 4.58 mg/dL (0.0-0.3) H 10/11/17 06:58 Total Protein 6.0 g/dL (6.4-8.2) L 10/07/17 06:33 Albumin 2.5 g/dL (3.4-5.0) L 10/07/17 06:33 Vancomycin Trough 17.9 ug/mL (10.0-20.0) 10/10/17 17:00 - Procedures Procedures: erythema and tenderness about the same as yesterday, olecranon bursa remains tense and tender, unchanged
--- NOTE | 2017-10-12 06:28 | PDOC.PROG ---
Date of Service: 10/11/17 Time of Service: 10:00 Assessment/Plan - Assessment/Plan (1) Olecranon bursitis of left elbow Assessment: Fever and chills resolved with vancomycin tx, ESR/CRP falling, WBC WNL. Continue Tx. He may still require I&D of olecranon bursa, Dr. De Jesus following, this decision can be made when cellulitis near resolution. (2) Cellulitis Assessment: improving History of Present Illness - History of Present Illness Chief Complaint: none History of Present Illness: Patient feels much better today Review of Systems - Review of Systems Constitutional: denies: Fever, Chills, Sweats - Medications/Allergies Allergies/Adverse Reactions: Allergies Allergy/AdvReac Type Severity Reaction Status Date / Time Sulfa (Sulfonamide Allergy Intermediate Skin Rash Unverified 10/06/17 11:56 Antibiotics) Medications: Current Medications Acetaminophen (Tylenol) 650 mg PO Q6H PRN PRN Last Admin: 10/09/17 21:59 Dose: 650 mg Acidophilus/Pectin (Acidophilus) 1 cap PO QMEALS COUNTS INCLUDE 234 BEDS AT THE [facility] Last Admin: 10/11/17 17:57 Dose: 1 cap Dimethicone/Zinc Oxide (Magda Protect Cream) 0 gm TP PRN PRN Diphenhydramine HCl (Benadryl) 25 mg PO HS COUNTS INCLUDE 234 BEDS AT THE [facility] Last Admin: 10/11/17 21:04 Dose: 25 mg Enoxaparin Sodium (Lovenox) 40 mg SC Q24H COUNTS INCLUDE 234 BEDS AT THE [facility] Last Admin: 10/11/17 13:53 Dose: 40 mg Vancomycin HCl 1,500 mg/ (Sodium Chloride) 500 mls @ 333.3333 mls/hr IVPB Q8H CASIMIRO PRN Reason: Protocol Last Admin: 10/12/17 02:19 Dose: 333.3333 mls/hr Sodium Chloride (Saline 500ml Bag) 500 mls @ 0 mls/hr IV PRN PRN PRN Reason: As Directed Last Admin: 10/11/17 19:15 Dose: 333 mls/hr IV Miscellaneous Supplies () 1 each IV DIRECTED COUNTS INCLUDE 234 BEDS AT THE [facility] Ketorolac Tromethamine (Toradol Injection) 30 mg IVP HS PRN Stop: 10/12/17 21:59 Last Admin: 10/10/17 21:55 Dose: 30 mg Magnesium Hydroxide (Milk Of Magnesia) 30 ml PO DAILY PRN PRN Naproxen (Naprosyn) 375 mg PO TID PRN Last Admin: 10/10/17 17:48 Dose: 375 mg Ondansetron HCl (Zofran Injection) 4 mg IVP Q4H PRN PRN Pantoprazole Sodium (Protonix) 40 mg PO DAILY COUNTS INCLUDE 234 BEDS AT THE [facility] Last Admin: 10/11/17 07:30 Dose: 40 mg Polyethylene Glycol (Miralax) 17 gm PO DAILY PRN PRN PRN Reason: Constipation Simvastatin (Zocor) 20 mg PO HS COUNTS INCLUDE 234 BEDS AT THE [facility] Last Admin: 10/11/17 21:04 Dose: 20 mg Sodium Chloride (Saline Flush 10 Ml Syringe) 0 ml IVP PRN PRN Last Admin: 10/12/17 02:19 Dose: 20 ml Objective - Exam Vitals and I&O: Vital Signs Temp 37.2 C 10/12/17 01:07 Pulse 70 10/12/17 01:07 Resp 20 10/12/17 01:07 BP 129/87 10/12/17 01:07 Pulse Ox 94 L 10/12/17 01:07 Intake & Output 10/11/17 10/11/17 10/12/17 11:59 23:59 11:59 Intake Total 1930 2799 600 Balance 1930 2799 600 Intake: IV 630 1319 600 Oral 1300 1480 Other: Urine Appearance Clear Comment pt voiding independnetly in the toilet and flushing. denies any problesm Voiding Methods Toilet General: Alert, Oriented x3, Cooperative, No acute distress Skin: Significant lesion (erythema and induration improved, O bursa about the same) - Results Results: Laboratory Results WBC 6.43 k/cumm (4.4-10.8) 10/11/17 06:58 RBC 4.29 m/cumm (4.50-6.00) L 10/11/17 06:58 Hgb 13.4 g/dL (13.5-17.5) L 10/11/17 06:58 Hct 38.9 % (40.0-50.0) L 10/11/17 06:58 MCV 90.7 fL (80-95) 10/11/17 06:58 MCH 31.2 pg (27.0-33.0) 10/11/17 06:58 MCHC 34.4 g/dL (32.0-36.0) 10/11/17 06:58 RDW 11.8 % (11.8-14.1) 10/11/17 06:58 Plt Count 200 x1000/uL (130-400) 10/11/17 06:58 MPV 9.9 fL (8.0-11.0) 10/11/17 06:58 Immature Gran % 0.5 10/11/17 06:58 Neutrophils % 59.5 10/11/17 06:58 Lymphocytes % 22.1 10/11/17 06:58 Monocytes % 10.1 10/11/17 06:58 Eosinophils % 7.3 10/11/17 06:58 Basophils % 0.5 10/11/17 06:58 Absolute Neutrophils 3.83 k/cumm (1.2-6.7) 10/11/17 06:58 Absolute Lymphocytes 1.42 k/cumm (1.2-3.4) 10/11/17 06:58 Absolute Monocytes 0.65 k/cumm (0.11-0.7) 10/11/17 06:58 Absolute Eosinophils 0.47 k/cumm (0.0-0.7) 10/11/17 06:58 Absolute Basophils 0.03 k/cumm (0.0-0.2) 10/11/17 06:58 ESR 70 MM/HR (1-20) H 10/11/17 06:58 Sodium 139 mmol/L (136-145) 10/11/17 06:58 Potassium 4.0 mmol/L (3.5-5.1) 10/11/17 06:58 Chloride 105 mmol/L (98-107) 10/11/17 06:58 Carbon Dioxide 26.8 mmol/L (21.0-32.0) 10/11/17 06:58 Anion Gap 7.2 mmol/L (3-11) 10/11/17 06:58 BUN 16 mg/dL (7-18) 10/11/17 06:58 Creatinine 0.91 mg/dL (0.70-1.30) 10/11/17 06:58 Estimated GFR/1.73 m2 >= 60.00 (mL/min/1.73m2) 10/11/17 06:58 Glucose 95 mg/dL (70-100) 10/11/17 06:58 Lactate 1.0 mmol/L (0.6-1.4) 10/06/17 12:19 Calcium 8.4 mg/dL (8.5-10.1) L 10/11/17 06:58 Magnesium 2.1 mg/dL (1.8-2.4) 10/06/17 12:19 Total Bilirubin 0.8 mg/dL (0.2-1.0) 10/07/17 06:33 AST 41 U/L (15-37) H 10/07/17 06:33 ALT 55 U/L (12-78) 10/07/17 06:33 Alkaline Phosphatase 63 U/L (46-116) 10/07/17 06:33 C-Reactive Protein 4.58 mg/dL (0.0-0.3) H 10/11/17 06:58 Total Protein 6.0 g/dL (6.4-8.2) L 10/07/17 06:33 Albumin 2.5 g/dL (3.4-5.0) L 10/07/17 06:33 Vancomycin Trough 17.9 ug/mL (10.0-20.0) 10/10/17 17:00
[2017-10-12 08:03] VITALS: BP 110/76; PULSE 78; RESP 16; TEMP 36.3; O2SAT 96
[2017-10-12] MEDS: Lactobacillus Acidophilus CAP 1 CAP PO ×3 (08:33→16:45)
[2017-10-12] MEDS: Pantoprazole 40 MG TABCR PO (08:33)
[2017-10-12 10:08] VITALS: O2SAT 93
[2017-10-12] MEDS: Linezolid 600 MG TAB PO ×2 (10:52→22:12)
[2017-10-12] MEDS: Enoxaparin 40 MG/0.4 ML SYR SC (13:52)
[2017-10-12 16:33] VITALS: BP 107/77; PULSE 74; RESP 19; TEMP 37.2; O2SAT 96
[2017-10-12] MEDS: Naproxen 375 MG TAB PO (18:07)
--- NOTE | 2017-10-12 18:09 | PDOC.CMPRO ---
Date of Service: 10/12/17 Time of Service: 18:09 Care Management Progress Note S/O: CM met with patient at the bedside, CM reviewed clinical chart, patient presented at interdisciplinary rounds. Yuan was switched to oral antibiotics today, with the possibility of discharge tomorrow if he tolerates antibiotics and does not run a fever. Yuan continues to have a guard at the bedside, CM did reach out to the supervising nurse at the correctional facility to determine if antibiotics can be obtained at the facility. CM was unable to contact a nurse CM will follow up tomorrow to review discharge plan and to send medication updates. It is a possibility that patient be discharged back to facility tomorrow pending availability of antibiotics, and medically ready for discharge per provider. A: 52 year old male admitted for cellulitis of the left elbow. P: [facility] when medically cleared by MD. Pt [facility] be [facility]. No services are anticipated following discharge. CM will continue to provide support to patient, care team ongoing discharge planning and disposition.
--- NOTE | 2017-10-12 18:13 | CMPROGNOTE_ITS ---
Date of Service: 10/12/17 Time of Service: 18:09 Care Management Progress Note S/O: CM met with patient at the bedside, CM reviewed clinical chart, patient presented at interdisciplinary rounds. Yuan was switched to oral antibiotics today, with the possibility of discharge tomorrow if he tolerates antibiotics and does not run a fever. Yuan continues to have a guard at the bedside, CM did reach out to the supervising nurse at the correctional facility to determine if antibiotics can be obtained at the facility. CM was unable to contact a nurse CM will follow up tomorrow to review discharge plan and to send medication updates. It is a possibility that patient be discharged back to facility tomorrow pending availability of antibiotics, and medically ready for discharge per provider. A: 52 year old male admitted for cellulitis of the left elbow. P: [facility] when medically cleared by MD. Pt [facility] be [facility]. No services are anticipated following discharge. CM will continue to provide support to patient , care team ongoing discharge planning and disposition.
[2017-10-12 22:00] VITALS: BP 118/73; PULSE 70; RESP 18; TEMP 36.8; O2SAT 95
[2017-10-12] MEDS: Simvastatin 20 MG TAB PO (22:11)
[2017-10-12] MEDS: diphenhydrAMINE 25 MG CAP PO (22:13)
[2017-10-13 07:25] LABS: Abs Immature Grans 0.03 k/cumm (0.0-0.09); Absolute Basophil Count 0.02 k/cumm (0.0-0.2); Absolute Eosinophil Count 0.43 k/cumm (0.0-0.7); Absolute Lymphocyte Count 1.49 k/cumm (1.2-3.4); Absolute Monocyte Count 0.63 k/cumm (0.11-0.7); Basophils % 0.3; Eosinophils % 6.3; HCT 40.7 % (40.0-50.0); HGB 14.1 g/dL (13.5-17.5); Immature Grans % 0.4; Lymphocytes % 21.9; Mean Corp. HGB Concentration 34.6 g/dL (32.0-36.0); Mean Corpuscular Hemoglobin 31.3 pg (27.0-33.0); Mean Corpuscular Volume 90.4 fL (80-95); Mean Platelet Volume 10.2 fL (8.0-11.0); Monocytes % 9.3; Neutrophils % 61.8; Platelet Count 212 x1000/uL (130-400); RBC Distribution Width 11.7 % (11.8-14.1)
[2017-10-13 07:31] LABS: Anion Gap 5.1 mmol/L (3-11); BUN 21 mg/dL (7-18); CO2 28.9 mmol/L (21.0-32.0); CREATININE 0.94 mg/dL (0.70-1.30); Calcium 8.5 mg/dL (8.5-10.1); Chloride 105 mmol/L (98-107); Glucose 93 mg/dL (70-100); Potassium 3.8 mmol/L (3.5-5.1); Sodium 139 mmol/L (136-145)
[2017-10-13] MEDS: Naproxen 375 MG TAB PO ×2 (08:01→19:32)
[2017-10-13] MEDS: Lactobacillus Acidophilus CAP 1 CAP PO ×3 (08:01→16:37)
[2017-10-13] MEDS: Pantoprazole 40 MG TABCR PO (08:02)
[2017-10-13] MEDS: Linezolid 600 MG TAB PO ×2 (08:02→19:33)
[2017-10-13 08:08] VITALS: BP 110/76; PULSE 61; RESP 16; TEMP 36.7; O2SAT 97
--- NOTE | 2017-10-13 09:40 | PGE_ITS ---
PROGRESS NOTE DATE OF SERVICE October 12, 2017 at 6:09 p.m. DATE OF ADMISSION October 06, 2017 DICTATING PHYSICIAN Jamal Little M.D. ASSESSMENT AND PLAN 1. Olecranon bursitis. Evidence of left-sided olecranon bursitis with overlying cellulitic changes that have been responsive to treatment with vancomycin. A trail of p.o. antibiotics with doxy and Om nicef apparently with resumption of fevers. As per Ortho, will hold off on any attempted aspiration if possible. Will continue MRSA coverage, di scontinue vancomycin today however and change to oral linezolid and monitor clinically. Overall time frame for antibiotic regimen will depend on the patient's clinical status. 2. Prophylaxes. Subcutaneous Lovenox. SUBJECTIVE The patient admitted with evidence of left upper extremity cellulitis with very likely underlying ole cranon bursitis. He was maintained initially on broad-spectrum antibiotics with vancomycin and Zosyn, with Pip/Tazo discontinued on the October 10. Mr. Vicente continues to do very well and had remained afebrile. Orthopedic consultation was also p rovided and decided against aspiration of the joint, with continuation of antibiotic therapy with MRS A coverage. The patient was given a trial of oral antibiotics with doxycyline and Omnicef, but had a rather quick onset of fevers, prompting a change back to vancomycin. Otherwise, he has done well, and although he continues to be symptomatic, reports vast improvement in symptoms overall. PHYSICAL EXAMINATION GENERAL - The patient appears quite comfortable sitting up in bed. Enjoying lunch. No acute distress noted. VITAL SIGNS - Temperature 37.2 and afebrile, with last fever occurring on 10/09/2017. Blood pressure 107/77. Heart rate 74. Pulse oximetry 96% on room air. SKIN - Apparent improvement in overall erythema and edema surrounding the left elbow, but with contin ued pain and edema overlying the olecranon process. LABORATORY STUDIES None obtained this morning.
--- NOTE | 2017-10-13 11:26 | NUR.NOTE ---
Nursing Note: 1125: Shannon called from [facility] for update. informed nurse of change to abx therapy, that MD wants ortho to re-assess pt and that pt would not be discharged today.
[2017-10-13] MEDS: Enoxaparin 40 MG/0.4 ML SYR SC (14:11)
--- NOTE | 2017-10-13 15:19 | PDOC.CMPRO ---
Date of Service: 10/13/17 Time of Service: 15:19 Care Management Progress Note S/O: CM met with patient at the bedside, CM reviewed clinical chart, patient presented at interdisciplinary rounds. Yuan was switched to oral antibiotics and is doing well he has not had any fevers. Plan will be for him to transition back to [facility] on Saturday on oral antibiotics. CM left a message for nursing at [facility] to review discharge plan and new medications. Provider will follow up with Orthopedics on Saturday to determine if there is any other interventions needed for infected elbow. Yuan reports that it is feeling much better and he feels better. A: 52 year old male admitted for cellulitis of the left elbow. P: [facility] when medically cleared by . Pt will be [facility]. No services are anticipated following discharge. CM will continue to provide support to patient, care team ongoing discharge planning and disposition.
--- NOTE | 2017-10-13 15:37 | PGE_ITS ---
DATE OF SERVICE: October 13, 2017 ASSESSMENT AND PLAN: #1. Olecranon bursitis. Evidence of left-sided olecranon bursitis with overlying cellulitic changes , responsive to treatment with vancomycin. Currently undergoing a trial of oral antibiotics with chacho ezolid, continues to be afebrile and with improving symptoms. Of note, changed to doxycycline and Om nicef with recurrence of fevers, as stated below. Touched base with Orthopedic Surgery regarding sanjana gth of course of antibiotic therapy and potential for intervention versus continued monitoring over t tracy. #2. Prophylaxis. Continue subcutaneous Lovenox. SUBJECTIVE: [id number]-old man admitted with evidence of left upper extremity cellulitis with underlying olecranon bursitis. The patient was initially maintained on broad-spectrum antibiotics wi th vancomycin and Zosyn, with piperacillin/tazobactam discontinued on October 10. Since that time Mr. Vicente has done well with gradual but continued improvement in his overall symptoms. He was also seen in Orthopedics consultation, decided against aspiration of the joint until overlying cellulitis improved significantly Mr. Vicente's vancomycin was previously discontinued and he was started on a combination of doxycycl ine and Omnicef, with immediate return of fevers and malaise. He was switched back to vancomycin and has been maintained as such. Yesterday his vancomycin was discontinued and he was initiated on line zolid, and he has remained afebrile and feeling well since that time. No other events were reported. The patient remains afebrile. PHYSICAL EXAM: General: The patient appears quite comfortable. He had just ambulated from the shower to his bed. No acute distress noted. Vitals: Temperature 36.7 and afebrile. Blood pressure 110/76. Heart rate 61. Pulse oximetry 97%. Extremities: Left upper extremity with continued improvement in overall erythema and edema overlying the left elbow, with diminished but continued pain and edema overlying the olecranon process. LABS: Basic metabolic panel normal with the exception of a BUN of 21. CBC entirely normal.
[2017-10-13 16:07] VITALS: BP 118/75; PULSE 69; RESP 18; TEMP 36.6; O2SAT 97
[2017-10-13] MEDS: Simvastatin 20 MG TAB PO (22:22)
[2017-10-13] MEDS: diphenhydrAMINE 25 MG CAP PO (22:23)
[2017-10-13 23:51] VITALS: BP 117/74; PULSE 65; RESP 16; TEMP 36.8; O2SAT 98
[2017-10-14 07:27] LABS: HCT 41.9 % (40.0-50.0); HGB 14.5 g/dL (13.5-17.5); Mean Corp. HGB Concentration 34.6 g/dL (32.0-36.0); Mean Corpuscular Hemoglobin 31.5 pg (27.0-33.0); Mean Corpuscular Volume 90.9 fL (80-95); Platelet Count 228 x1000/uL (130-400); RBC 4.61 m/cumm (4.50-6.00); RBC Distribution Width 11.9 % (11.8-14.1); White Blood Cell Count 7.66 k/cumm (4.4-10.8)
--- NOTE | 2017-10-14 07:59 | PROG.BLANK ---
Date of Service: 10/14/17 Time of Service: 07:59 Progress Note Subjective: Yuan is doing well. He does report some pain and stiffness of the elbow but feels that everything is moving in the right direction. He denies any fever or chills. He has been switched to linezolid from vancomycin. He is tolerating this well. He has had no change in symptoms. Objective: Vital signs are stable. Afebrile. Evaluation of the left elbow shows no erythema. There is only minimal induration around the olecranon bursa. The flexion with space present at first has drastically reduced. Range of motion is limited at the extremes due to some pain. Assessment and plan: Yuan is a 52-year-old with a septic electron bursitis of the left elbow which is responding to MRSA agents. He is now on oral linezolid which is working well. We should continue to follow this but I expect he can return back to the correctional facility. I would recommend another 2 weeks of oral antibiotics. If he is doing well after discontinuation the near there is no need for further follow-up. However, if by 2 weeks he is having return of symptoms or the symptoms return after the discontinuation of the antibiotics, I should see him back for follow-up with likely need for surgical intervention. He should work on gentle active extension and flexion of the elbow. He may use the splint as needed for comfort, especially when up and moving or when sleeping.
[2017-10-14 08:00] VITALS: BP 111/73; PULSE 88; RESP 18; TEMP 37; O2SAT 95
[2017-10-14] MEDS: Pantoprazole 40 MG TABCR PO (08:16)
[2017-10-14] MEDS: Linezolid 600 MG TAB PO (08:16)
[2017-10-14] MEDS: Lactobacillus Acidophilus CAP 1 CAP PO ×2 (08:16→11:33)
[2017-10-14] MEDS: Naproxen 375 MG TAB PO (09:55)
[2017-10-14 09:56] LABS: C-Reactive Protein 0.92 mg/dL (0.0-0.3)
--- NOTE | 2017-10-14 12:08 | PDOC.CMDIS ---
Date of Service: 10/14/17 Time of Service: 12:08 LACE Index Scoring Tool - Questions: Length of Stay (in days): 7 - 13 Acuity (Admit via E.D.?): Yes E.D. Visits: 1 - Answers: Total Score: 9 Risk of Readmission: Low Risk Care Management Discharge Reason for Hospitalization: Left elbow cellulitis. Discharge Plan: Yuan will [facility] when medically cleared per MD. Pt will continue on 600 mg zyrox PO BID. CM spoke with medical staff at facility who confirmed they are able to obtain medication. Pt will have labs drawn in 7 days. No additional services anticipated at this time. He will transport [facility]. Patient/Family Education Needs: Review discharge instructions, any limitations, discussed Ask Me Three.
--- NOTE | 2017-10-14 12:22 | DISCHARGE ---
Discharge - Discharge Orders - Discharge Plan Disposition: OTHER Condition: Improving Diet:: As Tolerated Equipment/Supplies:: Elbow Brace Activity:: No overuse or strenuous activity with effected limb - Instructions Additional Instructions: Please perform blood work in 7 days. You do not have a follow-up with Orthopedic Surgery. However, if your elbow does not fully recover or if it gets worse again please make an appointment to be seen by Dr. Aguilar De Jesus.
--- NOTE | 2017-10-14 17:22 | DSE_ITS ---
DATE OF ADMISSION: October 08, 2017. BEING DISCHARGE: October 14, 2017. PRIMARY CARE PROVIDER: Jinny Boggs M.D. ADMITTING PROVIDER: Paloma Barger N.P. DISCHARGING PHYSICIAN: Jamal Little M.D. CHIEF COMPLAINT: Elbow pain and swelling. DISCHARGE DIAGNOSIS: 1) Left olecranon bursitis. 2) Left elbow cellulitis. CHIEF COMPLAINT: Left elbow pain. HISTORY OF PRESENT ILLNESS: 52-year-old man presented on [address] [facility] Emergency Department from the local correctional facility with complaints of left-sided elbow redness and swelling. Mr. Vicente reported a 4-day history of left-sided elbow erythema with accompanying edema, fever and pain. He was initially being treated as an outpatient with Keflex and Ceftriaxone, but was seen in the Emergency Department and deemed to have treatment failure secondary to worsening symptoms. Of note, the patient has also had a history of facial cellulitis requiring inpatient admission for IV a ntibiotics. Work-up in the Emergency Department was not significant for sepsis and the patient did not appear tox ic, but owing to a treatment failure, he was admitted for initiation of IV antibiotics. PAST MEDICAL HISTORY: 1) Dyslipidemia. 2) Gastroesophageal reflux disease. 3) History of cellulitis. PAST SURGICAL HISTORY: 1) Shoulder surgery. 2) Knee surgery. ALLERGIES: Sulfa. DISCHARGE MEDICATIONS: 1) Linezolid 600 mg b.i.d. for 10 additional days. 2) Lactobacillus acidophilous 1 capsule with each meal, for 10 days. 3) Simvastatin 20 mg q hs. 4) Ibuprofen 600 mg b.i.d. PRN. 5) Acetaminophen 650 mg b.i.d. PRN. 6) Pantoprazole 40 mg daily. LABORATORY DATA: Basic metabolic panel last checked yesterday essentially entirely normal with the exception of a BUN of 21. CBC checked this morning also entirely normal at time of discharge. STUDIES: 1) Elbow x-ray - limited examination of the left elbow with no definitive acute fracture o r dislocation. Findings suggestive of an effusion. Occult fracture cannot be excluded. Follow-up a s clinically appropriate. HOSPITAL COURSE: By problem list: 1) Septic olecranon bursitis. Evidence of left-sided septic olecranon bursitis with initial overlyi ng cellulitic changes that now appear resolved. The patient continues to have edema and pain of the left elbow, all of this has improved as well. According to discussion with Orthopedic Surgery, det ermination is for a total course of between 2-3 weeks of antibiotic therapy with re-evaluation if the re is a lack of resolution or if there is recurrence. Mr. Vicente was initially treated with broad-spectrum antibiotics that included Vancomycin and Zosyn , later changed to Vancomycin alone. An attempt at oral antibiotic therapy with Doxycycline and Omn icef failed secondary to the development of fevers, and the patient was reinitiated on IV Vancomycin. However, 2 days ago Mr. Vicente was initiated on Linezolid therapy, has tolerated this medicine w ell, with progressively improving symptoms overall. Plan is for 10 additional days of antibiotic the rapy with Linezolid with safety labs with a repeat CBC in 7 days. According to Orthopedic evaluation, the patient will be seen in follow-up only if he has recurrence o r worsening of his symptoms, at which time he will likely need surgical intervention. He was also p rovided a brace and instructed on gentle active motion of the elbow to include flexion and extension. Splint is provided for comfort as well. 2) Disposition. The patient is deemed improved and stable for [facility].
== END 2017-10-14 14:03 | disposition other institution (70) | DRG 558 ==
PROVIDERS: Family Medicine; Nurse Practitioner Acute Care; Nurse Practitioner Family; Student in an Organized Health Care Education/Training Program; Admitting Provider Family Medicine; Emergency Provider Emergency Medicine; PCP Internal Medicine; Visit Provider Internal Medicine
DX: M71.122 Other infective bursitis, left elbow (principal); L03.114 Cellulitis of left upper limb; K21.9 Gastro-esophageal reflux disease without esophagitis; E78.5 Hyperlipidemia, unspecified
CPT/HCPCS: 36415; 80048; 80053; 85027; 85652; 87040; 96361; 96365; 96375; 99285; J1650; 73080; 80202; 83605; 83735; 85025; 86140; 99219; 99231; 99232; 99238; 99284; G0378; J1885